=== PATIENT | female | born 1935 | race Caucasian/White ===

== ENCOUNTER 2017-10-01 09:03 | Outpatient (CLI) | payer MEDICARE, OTHER ==
--- NOTE | 2017-10-01 11:33 | CT ---
RIGHT FEMUR CT SCAN WITHOUT IV CONTRAST: HISTORY: Right lower thigh pain with history of an abnormal femur x-ray, which is not available for comparison . FINDINGS: The examination is performed from the proximal mid diaphysis down to the proximal tibia. There is no evidence of femoral fracture. 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 IMPRESSION: 1. No evidence for acute fracture or dislocation. 2. Significant arthrosis changes of the visualized knee joint, including large subchondral cystic ch anges involving the lateral compartment. 3. Small amount of knee joint fluid. 4. Arteriovascular calcifications. 5. No evidence of subcutaneous or soft tissue mass or abnormal fluid collection. POS: [facility]
== END 2017-10-01 09:04 | disposition home or self-care (01) ==
LOC: CT 09:03
PROVIDERS: ATTEND Specialist
DX: S72.341A Displaced spiral fracture of shaft of right femur, initial encounter for closed fracture (principal); M17.11 Unilateral primary osteoarthritis, right knee; I70.201 Unspecified atherosclerosis of native arteries of extremities, right leg

== ENCOUNTER 2017-10-30 00:48 | Emergency (ER) | payer MEDICARE, OTHER ==
[2017-10-30] MEDS ORDERED: Acetaminophen 500 MG TAB ONE (02:04)
--- NOTE | 2017-10-30 07:46 | CT ---
PRELIMINARY REPORT/[facility]/EMERGENCY AFTER HOURS PROCEDURE: EXAM: CT Head Without Intravenous Contrast CLINICAL HISTORY: 82 years old, female; Injury or trauma; Fall; Initial encounter; Abrasion; Not specified; Patient HX: Fall, from height less than 3 feet. TECHNIQUE: Axial computed tomography images of the head/brain without intravenous contrast. COMPARISON: No relevant prior studies available. FINDINGS: Brain: Mild volume loss No hemorrhage. Mild white matter disease. Chronic right basal ganglia and lef t internal capsular lacunar infarctions No edema. Ventricles: Unremarkable. No ventriculomegaly. Bones/joints: Unremarkable. No acute fracture. Soft tissues: Unremarkable. Sinuses: Polypoid tissue in the right maxillary sinus No acute sinusitis. Mastoid air cells: Unremarkable as visualized. No mastoid effusion. IMPRESSION: No intracranial hemorrhage.Please see discussion above. Thank you for allowing us to participate in the care of your patient. Dictated and Authenticated by: Craig Tran MD 10/30/2017 1:56 AM Central Time ([place] & [place]) FINAL INTERPRETATION HEAD CT WITHOUT CONTRAST: 10/30/2017 HISTORY: Injury. Fall. Pain. COMPARISON: None. FINDINGS: I agree with the preliminary [facility] report dictated by Dr. Craig Tran. There is polypoid mucosal thickening within the alveolar recess of the maxillary sinus on the left. There is atherosclerotic calcification of the cavernous carotid arteries. There are scattered areas of hypodensity in the periventricular white matter, evidence of small vesse l disease. There is atherosclerotic calcification of the cavernous carotid arteries and distal verte bral arteries. IMPRESSION: Stable head CT. No acute findings. POS: [facility]
--- NOTE | 2017-10-30 07:55 | CT ---
PRELIMINARY REPORT/[facility]/EMERGENCY AFTER HOURS PROCEDURE: EXAM: CT Cervical Spine Without Intravenous Contrast CLINICAL HISTORY: 82 years old, female; Injury or trauma; Fall; Initial encounter; Blunt trauma; Injury date: 10/30/2017 ; Injury details: Er2; Previous on pacs; Fall, from height less than 3 feet. TECHNIQUE: Axial computed tomography images of the cervical spine without intravenous contrast. All CT scans at this facility use one or more dose reduction techniques, viz.: automated exposure control; ma/kV adju stment per patient size (including targeted exams where dose is matched to indication; i.e. head); or iterative reconstruction technique. COMPARISON: No relevant prior studies available. FINDINGS: Vertebrae: Loss of vertebral body height, presumed degenerative No acute fracture. Discs/spinal canal/neural foramina: No acute findings. No significant spinal canal stenosis. Soft tissues: Unremarkable. Lung apices: Unremarkable as visualized. IMPRESSION: No definite acute cervical fracture Thank you for allowing us to participate in the care of your patient. Dictated and Authenticated by: Craig Tran MD 10/30/2017 1:56 AM Central Time ([place] & [place]) FINAL INTERPRETATION CERVICAL SPINE CT WITHOUT CONTRAST: 10/30/2017 HISTORY: Fall. Trauma. Pain. COMPARISON: 04/15/2017 FINDINGS: I agree with the preliminary [facility] report, dictated by Dr. Craig Tran. The C1 ring is intact. The visualized lung apices are unremarkable. The distal vertebral arteries demonstrate atherosclerotic calcification. The occipital condyles, den s, and C1-2 articulation demonstrate no acute findings. No displaced fracture or evidence of dislocation. Sagittal reformatted imaging demonstrates an intact craniocervical junction and cervicothoracic junct ion. There is degenerative present at the atlantoaxial interspace. Cervical vertebral body height a nd alignment appear normal. No fracture/dislocation. IMPRESSION: No acute osseous abnormality. POS: [facility]
--- NOTE | 2017-10-30 07:59 | RAD ---
TWO VIEWS RIGHT FEMUR: History: Fall. Pain. Comparison: None. FINDINGS: No fracture. No cortical irregularity or periosteal reaction. There is mild bone demineralization. IMPRESSION: No fracture. POS: [facility]
--- NOTE | 2017-10-30 08:04 | RAD ---
FRONTAL VIEW CHEST: CLINICAL HISTORY: Fall with pain. FINDINGS: There is linear density with slight nodularity at the lateral and inferior right hemithorax. There i s elevation of the right hemidiaphragm. There is interstitial prominence of each joint space. There is borderline size of the cardiac silhouette. Vascular calcification and slight vascular prominence is seen. Scattered osseous degenerative change is present. IMPRESSION: Linear and somewhat nodular configuration to a small area of opacity at the inferolateral right hemit horax. Comparing to the 07/01/2014 exam, this is a new finding. Recommend followup on a short term basis with a two view chest to confirm resolution. Otherwise, no acute process visualized. POS: [facility]
--- NOTE | 2017-10-30 08:04 | RAD ---
FOUR VIEWS RIGHT KNEE: Date: 10-30-17 Comparison: None. History: Fall. FINDINGS: Moderate medial compartment narrowing is noted with subchondral sclerosis and osteophyte formation. T here is mild medial compartment narrowing. There is no displaced fracture or evidence of dislocation seen. There is enthesophyte formation at th e insertion of the quadriceps tendon. Patellofemoral joint space narrowing and posterior patellar ost eophyte formation noted. No displaced fracture or dislocation. IMPRESSION: Multicompartment degenerative changes but no acute osseous abnormality. POS: [facility]
== END 2017-10-30 03:18 ==
LOC: ERS 00:48
DX: S80.01XA Contusion of right knee, initial encounter (principal); S70.11XA Contusion of right thigh, initial encounter; I10 Essential (primary) hypertension; E11.39 Type 2 diabetes mellitus with other diabetic ophthalmic complication; H40.9 Unspecified glaucoma; F41.9 Anxiety disorder, unspecified; F03.90 Unspecified dementia, unspecified severity, without behavioral disturbance, psychotic disturbance, mood disturbance, and anxiety; F32.9 Major depressive disorder, single episode, unspecified; Z87.891 Personal history of nicotine dependence; Z87.442 Personal history of urinary calculi; W17.89XA Other fall from one level to another, initial encounter
CPT/HCPCS: 70450; 71045; 72125; 93005

== ENCOUNTER 2018-09-25 22:00 | Emergency (ER) | payer MEDICARE, OTHER ==
--- NOTE | 2018-09-25 22:59 | RAD ---
RIGHT KNEE 4 VIEWS: Date: 09/25/18 HISTORY: Patient fell, now with knee pain. FINDINGS: The bones are demineralized. There are moderate arthritic changes of the knee with tricompartment deg enerative change. No joint effusion or fracture. IMPRESSION: Arthritic changes of the knee. No acute findings. POS: [facility]
--- NOTE | 2018-09-25 23:00 | RAD ---
RIGHT HIP 2 VIEWS: Date: 09/25/18 HISTORY: Fall with hip pain. FINDINGS: The bones are demineralized. There are mild arthritic changes of the hip. There are no signs of fract ure. IMPRESSION: No evidence of fracture. POS: [facility]
--- NOTE | 2018-09-25 23:20 | CT ---
CT OF BRAIN PERFORMED WITHOUT CONTRAST ENHANCEMENT: Date; 09/25/18 HISTORY: Fall. Hit back of head. COMPARISON: 10/30/17. FINDINGS: There is generalized ventricular and sulcal prominence. There are no signs of intracerebral hemorrhag e or extra-axial fluid collections. The mastoid air cells and visualized sinuses are clear. IMPRESSION: Atrophy and chronic white matter change. No acute intracranial abnormalities. POS: [facility]
--- NOTE | 2018-09-25 23:21 | CT ---
CT OF CERVICAL SPINE PERFORMED WITHOUT CONTRAST ENHANCEMENT: Date: 09/25/18 HISTORY: Fall with neck pain. FINDINGS: Vertebral bodies are normal in height. The bones appear demineralized. Degenerative disc narrowing is seen at C6-7. There are moderate degenerative facet changes noted. The facets do appear to be in nor mal alignment. No significant canal stenosis. There is no CT evidence for fractures. Lung apices are clear. IMPRESSION: No CT evidence of fracture of the cervical spine. POS: [facility]
== END 2018-09-25 23:55 ==
LOC: ERS 22:00
DX: S09.90XA Unspecified injury of head, initial encounter (principal); M25.561 Pain in right knee; F41.9 Anxiety disorder, unspecified; F03.90 Unspecified dementia, unspecified severity, without behavioral disturbance, psychotic disturbance, mood disturbance, and anxiety; Z87.891 Personal history of nicotine dependence; I10 Essential (primary) hypertension; W01.10XA Fall on same level from slipping, tripping and stumbling with subsequent striking against unspecified object, initial encounter
CPT/HCPCS: 70450; 72125

== ENCOUNTER 2018-11-11 22:24 | Observation (INO) | payer MEDICARE, OTHER ==
[2018-11-11] MEDS ORDERED: Acetaminophen 650 MG Suppository ONE (22:41)
[2018-11-11 23:06] LABS: Bilirubin Negative (Negative); Blood, Urine Small (Negative); Clarity CLOUDY (Clear); Glucose, Urine (Dipstick) Negative (Negative); Leukocyte Moderate (Negative); Nitrite Positive (Negative); Protein, Urine (Dipstick) 30 mg/dL (Neg-Trace); Specific Gravity, Urine 1.019 (1.002-1.036)
[2018-11-11 23:12] LABS: Bacteria/HPF 1+ HPF (None Seen); Pathc Cast-AUWi Flag 1.76 (0-2.49); Squamous Epithelial None Seen HPF (0-3)
--- NOTE | 2018-11-11 23:15 | RAD ---
FEXAM: Portable chest PROVIDED CLINICAL HISTORY: Altered mental status COMPARISON: 04/06/2016 FINDINGS: Cardiac and mediastinal silhouette is within normal limits. No focal consolidation, pleural fluid or pneumothorax evident. IMPRESSION: No evidence for an acute cardiopulmonary process.
[2018-11-11 23:17] LABS: #Eosinphils 0.1 thou/uL (0.0-0.7); #Lymphocytes 1.1 thou/uL (1.20-3.40); #Monocytes 1.3 thou/uL (0.11-0.59); #Neutrophils 7.3 thou/uL (1.40-6.50); %Basophils 0.4 % (0.0-1.0); %Eosinophils 0.6 % (0.0-10.0); %Lymphocytes 11.5 % (21.0-51.0); %Monocytes 13.3 % (0.0-10.0); %Neutrophils 74.3 % (42.0-75.0); Hemoglobin 9.8 g/dL (12.0-16.0); Mean Corpuscular HGB CONC 32.7 g/dL (32.0-36.0); Mean Corpuscular Hemoglobin 30.7 pg (27.0-31.0); Mean Corpuscular Volume 93.8 fL (78.0-98.0); Mean Platelet Volume 8.3 fL (7.4-10.4); Platelet Count 259 thou/uL (130-400); RBC Distribution Width 12.8 % (11.5-14.5); Red Blood Cell (RBC) Count 3.18 mill/uL (4.20-5.40); White Blood Cell (WBC) Count 9.8 thou/uL (4.8-10.8)
[2018-11-11 23:32] LABS: Hyaline Casts/LPF NONE SEEN LPF (0-3 Hyaline)
--- NOTE | 2018-11-11 23:34 | CT ---
FExam: CT brain PROVIDED CLINICAL HISTORY: Altered mental status COMPARISON: 09/25/2018 FINDINGS: The ventricular system is normal in size and morphology. No evidence for intracranial hemorrhage or mass effect. The extracranial soft tissues and osseous structures demonstrate an unremarkable CT appe arance. Chronic microvascular ischemic changes are redemonstrated. IMPRESSION: No evidence for intracranial hemorrhage or mass effect.
[2018-11-11 23:40] LABS: ALT (SGPT) 19 U/L (8-55); AST (SGOT) 17 U/L (5-34); Albumin 3.1 g/dL (3.4-4.8); Alkaline Phosphatase 80 U/L (40-150); Anion Gap 14 mmol/L (10-20); BUN (Urea Nitrogen) 20 mg/dL (9.8-20.1); Bilirubin, Total 0.6 mg/dL (0.2-1.2); Calc. Creatinine Clearance 0 mL/min (70-130); Calcium 8.9 mg/dL (7.8-10.44); Carbon Dioxide 24 mmol/L (23-31); Chloride 106 mmol/L (98-107); Estimated GFR-MDRD 63; Glucose 118 mg/dL (83-110); Potassium 3.7 mmol/L (3.5-5.1); Protein, Total 6.1 g/dL (6.0-8.3); Sodium 140 mmol/L (136-145)
[2018-11-11] MEDS ORDERED: Ondansetron PF 4 MG/2 ML Vial IVP PRN (23:50)
[2018-11-11] MEDS ORDERED: Zolpidem Tartrate 5 MG TAB PO PRN (23:50)
[2018-11-11] MEDS ORDERED: Acetaminophen 325 MG TAB PO PRN (23:50)
[2018-11-11] MEDS ORDERED: Senokot S 8.6-50 MG TAB PO PRN (23:50)
[2018-11-12] MEDS ORDERED: ALPRAZolam 0.25 MG TAB PO PRN (00:02)
[2018-11-12] MEDS ORDERED: cefTRIAXone\\ROCEPHIN 1 GM VIAL ONE (00:04)
--- NOTE | 2018-11-12 00:09 | PDOC.EVN ---
Event Note - Event Note Event Note: H&P [id number]
[2018-11-12] MEDS ORDERED: Melatonin 3 MG TAB PO PRN (00:19)
--- NOTE | 2018-11-12 00:33 | HP ---
CHIEF COMPLAINT: Change in mental status. HISTORY OF PRESENT ILLNESS: This is an 83-year-old female, who lives at [facility] with a diagnosis of dementia. The patient's son is at bedside, who provides a history. Apparently, the patient over the last 2 to 3 days has been having worsening cognitive function. This morning, the patient states that she failed to recognize him and was having some speech as well as significant weakness and change in status. The patient was brought to the hospital, found to have a raging UTI. The patient did not have any oral antibiotics tried at the outpatient facility. Per ER, I was told that the patient would not be accepted back to [facility] unless she tried IV antibiotics and was admitted to the hospital, thus admission was recommended by the nurse practitioner. ALLERGIES: TO AMOXICILLIN, VANCOMYCIN, AND ADHESIVE TAPE. PAST MEDICAL HISTORY: Positive for dementia, hypertension, back pain, GERD, as well as hyperlipidemia. SOCIAL HISTORY: Nondrinker and nonsmoker. FAMILY HISTORY: Positive for hypertension and hyperlipidemia. REVIEW OF SYSTEMS: Not possible given changes in mental status. PHYSICAL EXAMINATION: VITAL SIGNS: Blood pressure 121/88, heart rate of 88, temperature of 98, and O2 saturations 98% on room air. GENERAL: The patient is sleeping in bed. No acute discomfort. HEENT: Pupils are equal, round, and reactive to light and accommodation. NECK: Supple, mobile, nontender. Thyroid is appreciated. CARDIOVASCULAR: Regular rate and rhythm. S1 and S2. Faint murmur systolic appreciated. PULMONARY: Clear to auscultation bilaterally. No respiratory distress. ABDOMINAL: Positive bowel sounds. Soft, nontender, and nondistended. EXTREMITIES: Trace pitting edema. 2+ peripheral pulses bilaterally. NEUROLOGIC: The patient withdraws to pain, babbling, not making any sense. LABORATORY DATA AND DIAGNOSTIC STUDIES: Labs reviewed. CBC, BMP, urinalysis reviewed. CT brain reviewed as well, which was negative for any acute intracranial processes. ASSESSMENT: 1. Altered mental status, likely secondary to urinary tract infection. 2. Urinary tract infection. 3. Anemia. 4. Hypertension. 5. History of dementia. PLAN: At this point in time, we will admit the patient to Internal Medicine Team and Observation services with IV Rocephin to be started. If the patient has improvement, can likely be discharged in a.m. with Keflex or Levaquin to complete 7-day course. The patient is a DNR per her son in case and plan discussed with the patient's son at length. He understood and agreed with this plan. Job ID: [id number]
[2018-11-12] MEDS: Sodium Chloride 0.9% 1,000 ML IV SCH ×2 (00:50→15:52)
[2018-11-12 01:15] VITALS: BMI 23.1
[2018-11-12] MEDS: cefTRIAXone\\ROCEPHIN 1 GM in Sodium Chloride 0.9% 100 ML IVPB SCH (01:34)
[2018-11-12 04:44] LABS: #Eosinphils 0.1 thou/uL (0.0-0.7); #Lymphocytes 1.6 thou/uL (1.20-3.40); #Monocytes 1.2 thou/uL (0.11-0.59); #Neutrophils 6.2 thou/uL (1.40-6.50); %Basophils 0.4 % (0.0-1.0); %Eosinophils 0.9 % (0.0-10.0); %Lymphocytes 17.1 % (21.0-51.0); %Monocytes 13.3 % (0.0-10.0); %Neutrophils 68.2 % (42.0-75.0); Hemoglobin 9.7 g/dL (12.0-16.0); Mean Corpuscular HGB CONC 32.9 g/dL (32.0-36.0); Mean Corpuscular Hemoglobin 31.2 pg (27.0-31.0); Mean Corpuscular Volume 94.8 fL (78.0-98.0); Platelet Count 245 thou/uL (130-400); RBC Distribution Width 12.9 % (11.5-14.5); Red Blood Cell (RBC) Count 3.11 mill/uL (4.20-5.40); White Blood Cell (WBC) Count 9.1 thou/uL (4.8-10.8)
[2018-11-12 05:07] LABS: Anion Gap 13 mmol/L (10-20); BUN (Urea Nitrogen) 20 mg/dL (9.8-20.1); Calc. Creatinine Clearance 54 mL/min (70-130); Calcium 8.6 mg/dL (7.8-10.44); Carbon Dioxide 22 mmol/L (23-31); Chloride 108 mmol/L (98-107); Estimated GFR-MDRD 68; Glucose 103 mg/dL (83-110); Potassium 3.7 mmol/L (3.5-5.1); Sodium 139 mmol/L (136-145)
[2018-11-12] MEDS: glyBURIDE 5 MG TAB PO SCH (08:42)
[2018-11-12] MEDS ORDERED: Prevnar 13-Val Conj/PF 0.5 ML SYRINGE IM ONE (09:00)
[2018-11-12] MEDS ORDERED: Mirtazapine 30 MG TAB PO SCH (09:00)
[2018-11-12] MEDS: Calcium Polycarbophil 625 MG TAB PO SCH (09:31)
[2018-11-12] MEDS ORDERED: Dextrose 50% Abboject 50 ML SYRINGE ONE (11:15)
[2018-11-12] MEDS: Dextrose 5 % And 0.9 % NaCl 1,000 ML IV SCH (15:45)
[2018-11-12] MEDS ORDERED: Dextrose 5% in Water 1,000 ML IV PRN (15:56)
[2018-11-12] MEDS ORDERED: HumaLOG 300 UNITS/3 ML VIAL SC PRN (15:56)
[2018-11-12] MEDS ORDERED: Dextrose 50% Abboject 50 ML SYRINGE SLOW IVP PRN (15:56)
[2018-11-12] MEDS ORDERED: Atorvastatin Calcium 10 MG TAB PO SCH (21:00)
--- NOTE | 2018-11-12 22:22 | PDOC.PN ---
- Subjective Encounter Start Date: 11/12/18 Encounter Start Time: 12:30 Subjective: pt up in bed oriented x1, complains of nausea - Objective Resuscitation Status - Order Detail: 11/12/18 00:08 Resuscitation Status Routine Resuscitation Status: DNAR: NO Resuscitation Discussed with: son Vital Signs & Weight: Vital Signs (12 hours) Temp Pulse Resp BP Pulse Ox 11/12/18 19:21 98.3 F 65 18 112/53 L 93 L 11/12/18 16:00 99.1 F 81 16 154/63 H 96 11/12/18 12:00 97.5 F L 82 16 129/62 95 Weight Weight 143 lb 4.807 oz I&O: 11/11/18 11/12/18 11/13/18 06:59 06:59 06:59 Intake Total 210 2641 Balance 210 2641 Result Diagrams: 11/12/18 04:29 11/12/18 04:29 Additional Labs: Accuchecks 11/12/18 11/12/18 11/12/18 19:43 18:26 17:49 POC Glucose 179 H 226 H 69 L 11/12/18 11/12/18 11/12/18 17:09 16:18 11:49 POC Glucose 65 L 48 L* 103 11/12/18 11:15 POC Glucose 58 L* Phys Exam - Physical Examination Neck: no nodes, no JVD, supple, full ROM Respiratory: no wheezing, no rales, no rhonchi, wheezing present, clear to auscultation bilateral Cardiovascular: RRR, no significant murmur, no rub, gallop, irregular Gastrointestinal: soft, non-tender, no distention, positive bowel sounds Musculoskeletal: no edema, pulses present, edema present Dx/Plan (1) Acute metabolic encephalopathy Code(s): G93.41 - METABOLIC ENCEPHALOPATHY Status: Acute (2) UTI (urinary tract infection) Status: Acute (3) Chronic nausea Code(s): R11.0 - NAUSEA Status: Chronic (4) Hypoglycemia Code(s): E16.2 - HYPOGLYCEMIA, UNSPECIFIED Status: Acute - Plan will continue abx for now -: pt encouraged to eat. if she continues to have a low appetite she may need -: a appetite stimulant. -: will order PT/OT * . Review of Systems - Review of Systems Respiratory: negative: Cough, Dry, Shortness of Breath, Hemoptysis, SOB with Excertion, Pleuritic Pain, Sputum, Wheezing Cardiovascular: negative: chest pain, palpitations, orthopnea, paroxysmal nocturnal dyspnea, edema, light headedness, other Gastrointestinal: Nausea Genitourinary: negative: Dysuria, Frequency, Incontinence, Hematuria, Retention , Other - Medications/Allergies Allergies/Adverse Reactions: Allergies Allergy/AdvReac Type Severity Reaction Status Date / Time adhesive Allergy Verified 03/16/14 16:23 amoxicillin trihydrate Allergy Verified 03/16/14 15:47 [From Amoxil] lincomycin HCl Allergy Verified 03/16/14 16:23 [From Lincocin] Medications: Current Medications Acetaminophen (Tylenol) 650 mg PO Q4H PRN PRN Reason: Headache/Fever/Mild Pain (1-3) Alprazolam (Xanax) 0.5 mg PO TIDPRN PRN PRN Reason: anxiety Atorvastatin Calcium (Lipitor) 10 mg PO HS [facility] Last Admin: 11/12/18 20:19 Dose: 10 mg Calcium Polycarbophil (Fibercon) 625 mg PO DAILY [facility] Last Admin: 11/12/18 09:31 Dose: 625 mg Dextrose/Water (Dextrose 50%) 25 gm SLOW IVP PRN PRN PRN Reason: Hypoglycemia Last Admin: 11/12/18 18:02 Dose: 25 gm Glucagon (Glucagon) 1 mg IM PRN PRN PRN Reason: Hypoglycemia Glyburide (Diabeta) 5 mg PO DAILY [facility] Last Admin: 11/12/18 08:42 Dose: 5 mg Ceftriaxone Sodium 1 gm/ (Sodium Chloride) 100 mls @ 200 mls/hr IVPB Q24HR [facility] Last Admin: 11/12/18 01:34 Dose: Not Given Dextrose/Sodium Chloride (D5 0.9% Ns) 1,000 mls @ 50 mls/hr IV .Q20H [facility] Last Admin: 11/12/18 15:45 Dose: 1,000 mls Dextrose/Water (D5w) 1,000 mls @ 0 mls/hr IV .Q0M PRN PRN Reason: Hypoglycemia Insulin Human Lispro (Humalog) 0 units SC .MILD SLIDING SCALE PRN PRN Reason: Mild Correctional Scale Melatonin (Melatonin) 6 mg PO HS PRN PRN Reason: Insomnia Mirtazapine (Remeron) 15 mg PO DAILY [facility] Ondansetron HCl (Zofran) 4 mg IVP Q6H PRN PRN Reason: Nausea/Vomiting Last Admin: 11/12/18 09:34 Dose: 4 mg Pantoprazole Sodium (Protonix) 40 mg PO DAILY [facility] Last Admin: 11/12/18 08:42 Dose: 40 mg Senna/Docusate Sodium (Senokot S) 2 tab PO BID PRN PRN Reason: Constipation Zolpidem Tartrate (Ambien) 5 mg PO HSPRN PRN PRN Reason: Insomnia
[2018-11-13] MEDS: cefTRIAXone\\ROCEPHIN 1 GM in Sodium Chloride 0.9% 100 ML IVPB SCH (03:21)
[2018-11-13] MEDS ORDERED: Mirtazapine 15 MG TAB PO SCH (09:00)
[2018-11-13] MEDS ORDERED: Saccharomyces boulardii 250 MG CAP PO SCH (09:00)
[2018-11-13] MEDS: Calcium Polycarbophil 625 MG TAB PO SCH (09:35)
[2018-11-13] MEDS: glyBURIDE 5 MG TAB PO SCH (09:35)
--- NOTE | 2018-11-13 11:29 | PDOC.EVN ---
Event Note - Event Note Event Note: DC SUMMARY [id number]
[2018-11-13] MEDS: Dextrose 5 % And 0.9 % NaCl 1,000 ML IV SCH (11:55)
[2018-11-13 12:44] VITALS: BP 151/70; TEMP 98.6
--- NOTE | 2018-11-14 05:24 | DIS ---
DATE OF ADMISSION: 11/11/2018 DATE OF DISCHARGE: 11/13/2018 ADMITTING DIAGNOSES: Urinary tract infection, sepsis, changes in mental status from baseline, history of dementia, hypertension. DISCHARGE DIAGNOSES: Urinary tract infection, stable. Anemia, stable. Hypertension, stable. The patient back to baseline mental status. HOSPITAL COURSE: This is an 83-year-old female who was found to have baseline changes in mental status at her skilled nursing. She lives apparently at [facility], brought to the ER, found to have urinary tract infection with sepsis. Started on IV Rocephin. The patient was maintained on this for 48 hours, had significant improvement in her physical condition. No fevers, chills, nausea, vomiting, diarrhea, chest pain, or shortness of breath upon time of discharge. Hemoglobin was stable. Renal function stable. The patient had significantly improved, was given Keflex to be taken twice a day at point in time of discharge to the skilled nursing. The patient otherwise advised to follow up with PCP. DIET: Low-fat, low-calorie, high-fiber diet. CONDITION: Stable. PROGNOSIS: Guarded. ACTIVITY: As tolerated with assistance as needed. DISPOSITION: Back to [facility]. FOLLOWUP: Follow up with PCP in one week. No family at bedside. Job ID: [id number]
== END 2018-11-13 17:09 | disposition home or self-care (01) ==
LOC: ERS 22:24 → ONC 23:45
PROVIDERS: ADMIT Internal Medicine; ATTEND Internal Medicine
DX: N39.0 Urinary tract infection, site not specified (principal); D64.9 Anemia, unspecified; I10 Essential (primary) hypertension; F03.90 Unspecified dementia, unspecified severity, without behavioral disturbance, psychotic disturbance, mood disturbance, and anxiety; K21.9 Gastro-esophageal reflux disease without esophagitis; E78.5 Hyperlipidemia, unspecified; G93.41 Metabolic encephalopathy; Z88.1 Allergy status to other antibiotic agents; Z91.09 Other allergy status, other than to drugs and biological substances; Z79.84 Long term (current) use of oral hypoglycemic drugs; Z79.2 Long term (current) use of antibiotics; Z79.899 Other long term (current) drug therapy
CPT/HCPCS: 51701; 70450; 71045; 80048; 80053; 82962 ×2; 83605; 84484; 85025 ×2; 87040; 87324; 87449; 87804 ×2; 93005; 96361 ×3; 96365; 96375; 97139; 99285; G0378 ×2; 36415; 36416; 81003; 81015; 96374; 96376; A4353; J0696; J2405; J7050

== ENCOUNTER 2018-11-28 20:03 | Inpatient (IN) | payer MEDICARE, OTHER ==
[2018-11-28 20:40] LABS: Bilirubin Negative (Negative); Blood, Urine Small (Negative); Clarity CLOUDY (Clear); Glucose, Urine (Dipstick) Negative (Negative); Leukocyte Large (Negative); Nitrite Negative (Negative); Protein, Urine (Dipstick) 100 mg/dL (Neg-Trace); Specific Gravity, Urine 1.014 (1.002-1.036); Urobilinogen 0.2 mg/dL (0.2-1.0)
[2018-11-28 20:42] LABS: Bacteria/HPF 4+ HPF (None Seen); Pathc Cast-AUWi Flag 1.22 (0-2.49); RBC/HPF 0-3 HPF (0-3); Squamous Epithelial None Seen HPF (0-3)
[2018-11-28 20:48] LABS: Hemoglobin 11.2 g/dL (12.0-16.0); Mean Corpuscular HGB CONC 32.5 g/dL (32.0-36.0); Mean Corpuscular Hemoglobin 30.3 pg (27.0-31.0); Mean Corpuscular Volume 93.3 fL (78.0-98.0); Mean Platelet Volume 8.3 fL (7.4-10.4); Platelet Count 356 thou/uL (130-400); RBC Distribution Width 13.6 % (11.5-14.5)
--- NOTE | 2018-11-28 20:50 | RAD ---
EXAM: CHEST ONE VIEW HISTORY: Decreasing mental status. Altered mental status. Recently treated for UTI. COMPARISON: 11/11/2018 FINDINGS: The cardiac silhouette and pulmonary vasculature is within normal limits. There is mild atelectasis a t the right lung base. The lungs otherwise appear clear. There is osteopenia. Vascular calcifications are seen in the thoracic aorta. Surgical clips are again seen overlying the right uppe r quadrant. IMPRESSION: No acute cardiopulmonary process.
[2018-11-28 20:56] LABS: Hyaline Casts/LPF 4-6 HYALINE CAST LPF (0-3 Hyaline)
[2018-11-28 20:57] LABS: Band 14 % (5-11); Lymphocytes 10 % (21-51); MDiff Complete? YES; Monocytes 9 % (0-10); Neutrophil 66 % (42-75); Platelet Morphology Comment Appears Adequate
[2018-11-28 21:02] LABS: ALT (SGPT) 23 U/L (8-55); AST (SGOT) 17 U/L (5-34); Albumin 3.4 g/dL (3.4-4.8); Alkaline Phosphatase 79 U/L (40-150); Anion Gap 14 mmol/L (10-20); BUN (Urea Nitrogen) 18 mg/dL (9.8-20.1); Bilirubin, Total 0.5 mg/dL (0.2-1.2); Calc. Creatinine Clearance 0 mL/min (70-130); Calcium 8.8 mg/dL (7.8-10.44); Carbon Dioxide 25 mmol/L (23-31); Chloride 103 mmol/L (98-107); Estimated GFR-MDRD 61; Globulin 2.8 g/dL (2.4-3.5); Glucose 119 mg/dL (83-110); Lipase 78 U/L (8-78); Potassium 3.4 mmol/L (3.5-5.1); Protein, Total 6.2 g/dL (6.0-8.3); Sodium 139 mmol/L (136-145)
--- NOTE | 2018-11-28 21:20 | CT ---
CT BRAIN 11/28/18 HISTORY: Altered mental status. Noncontrast enhanced CT images of the brain is obtained from the base of the skull to the vertex. Br ain and bone windows obtained. Images demonstrate small areas of lacunar infarction in the left basal ganglia. This appears to have been present on the previous exam from 11/11/18. No evidence of acute intracranial masses or lesions seen. No other significant interval changes or ab normality seen. IMPRESSION: No evidence of acute intracranial pathology. POS: [facility]
[2018-11-28] MEDS ORDERED: cefTRIAXone\\ROCEPHIN 2 GM VIAL ONE (22:16)
[2018-11-28] MEDS ORDERED: SODIUM CHLORIDE 0.9% IVPB SCH (22:45)
[2018-11-28] MEDS ORDERED: GENTAMICIN SULFATE IVPB SCH (22:45)
--- NOTE | 2018-11-28 23:23 | CT ---
NONCONTRAST ENHANCED CT IMAGES ABDOMEN AND PELVIS: 11/28/18 HISTORY: Urinary tract infections, abdominal pain. Noncontrast enhanced CT images of the abdomen and pelvis is obtained. A tiny right sided pleural effusion seen. Some minimal areas of right lower lobe atelectasis seen. No evidence of free intraperitoneal air is seen. The liver and spleen are unremarkable. The gallbladder has been surgically removed. The pancreas is u nremarkable. Adrenal glands unremarkable. The left kidney is unremarkable. There is an 8.8 mm renal calculus at the right ureteropelvic junction resulting in moderate right walt ed hydronephrosis. I suspect that this calculus is too large to pass the right ureter. There is surro unding right pararenal fat stranding. The urinary bladder is unremarkable. No dilated loops of small bowel seen. Extensive descending and sigmoid colonic diverticulosis is pres ent. IMPRESSION: Right sided hydronephrosis with obstructing proximal right ureteral renal calculus. POS: [facility]
[2018-11-29] MEDS ORDERED: Magnesium Sulfate 4 GM in Sodium Chloride 0.9% 250 ML 250 ML IVPB SCH (00:30)
[2018-11-29] MEDS ORDERED: Ondansetron PF 4 MG/2 ML Vial IVP PRN (00:36)
[2018-11-29] MEDS ORDERED: Acetaminophen 325 MG TAB PO PRN (00:36)
[2018-11-29] MEDS ORDERED: Ondansetron ODT 4 MG TAB SL PRN (00:36)
[2018-11-29 04:00] LABS: Lactic Acid 2.4 mmol/L (0.5-2.2)
[2018-11-29] MEDS: Sodium Chloride 0.9% 1,000 ML IV SCH ×2 (04:11→11:56)
[2018-11-29 05:05] VITALS: BMI 21.6
[2018-11-29] MEDS ORDERED: Guaifenesin DM 100-10/5 ML UDCUP PO PRN (07:52)
[2018-11-29] MEDS ORDERED: Acetaminophen 650 MG Suppository PR PRN (07:52)
[2018-11-29] MEDS ORDERED: Bisacodyl 10 MG SUPP PR PRN (07:52)
[2018-11-29] MEDS ORDERED: HYDROcodone/Acetaminophen 5/325 mg Tablet PO PRN (07:52)
[2018-11-29] MEDS ORDERED: Senokot S 8.6-50 MG TAB PO PRN (07:52)
[2018-11-29] MEDS ORDERED: Docusate 100 MG CAP PO PRN (08:05)
[2018-11-29] MEDS ORDERED: BENZOCAINE TOP PRN (08:05)
[2018-11-29] MEDS ORDERED: Dextrose 5% in Water 1,000 ML IV PRN (08:07)
[2018-11-29] MEDS ORDERED: HumaLOG 300 UNITS/3 ML VIAL SC PRN (08:07)
[2018-11-29] MEDS ORDERED: Dextrose 50% Abboject 50 ML SYRINGE SLOW IVP PRN (08:07)
[2018-11-29] MEDS ORDERED: Potassium Chloride 20 MEQ TAB PO ONE (08:14)
[2018-11-29] MEDS ORDERED: Benzocaine (Dental) 20% 10 gm Tube TOP PRN (08:18)
[2018-11-29 08:58] LABS: Folate (Folic Acid) 8.7 ng/mL (7.0-31.4)
[2018-11-29] MEDS ORDERED: Non-Formulary Item 1 EACH (Sertraline Hcl [Sertraline Hcl] 50 MG) PO SCH (09:00)
[2018-11-29] MEDS: Enoxaparin Sodium 30 MG/0.3 ML SYRINGE SC SCH (13:23)
[2018-11-29] MEDS: Donepezil HCl 5 MG TAB PO SCH (13:23)
[2018-11-29] MEDS: Calcium Polycarbophil 625 MG TAB PO SCH (13:23)
[2018-11-29] MEDS: Mirtazapine 30 MG TAB PO SCH (13:24)
[2018-11-29] MEDS: Piperacillin/Tazobactam 3.375 GM in Sodium Chloride 0.9% 100 ML IVPB SCH ×2 (13:52→18:30)
--- NOTE | 2018-11-29 14:25 | CON ---
DATE OF CONSULTATION: 11/29/2018 REFERRING: Hospitalist. HISTORY OF PRESENT ILLNESS: Ms. Arriaga is an 83-year-old female with history of severe dementia, Alzheimer's, a resident of [facility] , who presents with UTI, recently discharged from the hospital, with Keflex. She is admitted through the emergency room last night due to mental status changes for the last 2-3 days. She was recently discharged from the hospital for UTI. She presented to the emergency room to rule out worsening infection complication. Her vital signs are stable in the emergency room, temperature of 98, blood pressure 124/60, however, [place] was [place] [address] with 14 bands. She is hemodynamically stable. She is known to have history of diabetes with prior A1c of 6.2. Renal function is stable. She also presented with elevated lactic acid of 3.8. Repeat this morning is 2.4. Her urine culture, which I reviewed myself when she was recently discharged demonstrates the culture is negative. However, she was treated for presumed UTI component. Remote history of E coli, pansensitive except to ampicillin in November 2013. H/o nonobstructing right renal calculi. Upon discussing with her son, he is unaware of her diagnosis of renal calculi, he denies history of kidney stone surgery. Currently, she is resting comfortably. She has received multiple antibiotics of gentamicin, vancomycin, and Rocephin. History is obtained per chart and son as she is unable to provide a subjective history due to severe dementia. PAST MEDICAL HISTORY: Includes: 1. Hypertension. 2. Chronic abdominal pain/irritable bowel syndrome. 3. Anxiety. 4. Depression. 5. Severe dementia. 6. Alzheimer. 7. History of narcotic-seeking behavior per Dr. Rojas's consult in 2010. 8. Extensive intraabdominal adhesions. 9. History of a colon carcinoid tumor status post removal in [address] Alvarado. 10. History of basal cell carcinoma. 11. History of kidney stone. 12. History of hearing loss. 13. History of glaucoma. 14. History of ulcerative colitis. PAST SURGICAL HISTORY: Colon resection, appendectomy, cholecystectomy, hysterectomy, and bilateral breast lumpectomies. PSYCHIATRIC HISTORY: Include anxiety, depression, and severe dementia. SOCIAL HISTORY: Lives in [facility]. Denies illicit drug use or smoking. FAMILY HISTORY: Noncontributory. ALLERGIES: PER ER, NO KNOWN DRUG ALLERGIES. SON RELATES ALLERGY TO AMOXICILLIN. CURRENT MEDICATIONS: Again, she has received vancomycin, gentamycin, and Rocephin in the ER. Currently on Zosyn, Zoloft, Senokot, Seroquel, Remeron, melatonin, insulin sliding scale, Robitussin, Lovenox 30 mg subcutaneous, Colace, Aricept, FiberCon, Dulcolax, hydrocodone 5/325, and Tylenol. PHYSICAL EXAMINATION: VITAL SIGNS: Stable at temperature 98, pulse 73, saturations 93%, and blood pressure 124/60. GENERAL: The patient appears to be resting comfortably. HEENT: Grossly unremarkable. HEART: Regular rate. LUNGS: Clear. ABDOMEN: Soft, nontender, nondistended. Midline laparotomy incision is noted. : Demonstrates severe atrophic vaginitis. Urethral mucosa prolapse. EXTREMITIES: No cyanosis, clubbing, or edema. She does complain of right knee pain due to arthritis. PERTINENT LABORATORY AND IMAGING DATA: On November 12, her white count was normal at 9.3 and on arrival yesterday 25,000 white count, hemoglobin 11, platelet 256, 14 bands. Prior INR back in 2013 is grossly unremarkable. Hemoglobin A1c 6.2 in 2016. Creatinine on arrival is 0.8. Lactic acid yesterday 3.8, decreased to 2.4 with antibiotics. Blood cultures negative thus far. C diff is negative. Urine culture from earlier in November/2018 is negative. November 2013, E coli pansensitive urine culture. Urinalysis on this current admission demonstrates 100 protein, large leukocytes, negative nitrites, greater than 50 wbc's, 0-3 rbc's, 4+ bacteria. Repeat urine culture is pending. CT of the abdomen and pelvis in comparison to 2016, which demonstrates a right nonobstructing 6-[address] scan on November 28, 2018, stone protocol. Left kidney is unremarkable. There is a 9-10 mm per my review right UPJ proximal ureteral stone with right hydronephrosis. There is perirenal fat stranding. Bladder is unremarkable. Extensive colonic diverticulosis. CT of the brain on this admission November 28 is grossly unremarkable. No acute process of chest x-ray. EKG on this admission demonstrates nonspecific ST-T wave abnormality, prolonged QT. IMPRESSION: Ms. Arriaga is an 83-year-old female with: 1. Past medical history of diabetes. 2. Severe dementia. 3. Hypertension. 4. History of colon resection. 5. History of ulcerative colitis. 6. History of kidney stone. 7. Recent admission due to urinary tract infection, however, culture negative, current admission due to leukocytosis. Urinalysis consistent with urinary tract infection, leukocytosis, elevated lactic acid. CT demonstrates a large proximal ureteral stone 9-10 mm with hydronephrosis. I discussed with son in lengthy detail regarding cysto and right stent placement. She will require an elective ureteroscopy and laser lithotripsy. As she presents with urinary tract infection component, concerning for sepsis, the patient's son desires me to proceed with the ureteral stent placement. She will undergo cystoscopy and right stent today. I do recommend cardiac evaluation in-house, as laser lithotripsy will be performed at a later date with general anesthesia. Given stone burden, it will be a longer period of anesthesia that she will require for laser lithotripsy of ureteral calculi. We will proceed today for cystoscopy, stent. Questions encouraged and answered to satisfaction. Continue Zosyn for now., Culture identification on this admission is pending. Job ID: [id number] MTDD
--- NOTE | 2018-11-29 14:39 | HP ---
PRIMARY CARE PHYSICIAN: Mika Gomez MD. CHIEF COMPLAINT: Confusion. HISTORY OF PRESENT ILLNESS: The patient has dementia and cannot provide full information, although the patient was recently hospitalized, and information is taken from nursing staff and records. She is 83 and has history of moderate dementia, hypertension, chronic back pain, wheelchair bound, GERD, hyperlipidemia, and recent urinary tract infection with 2 organisms growing in the urine cultures including Streptococcus and E. coli, fairly sensitive to antibiotics, who returns to the Emergency from her [facility] for confusion x3 days. In the emergency department, she was found to have an abnormal urinalysis, elevated white blood cell count of 25, lactic acidosis, and some electrolyte abnormalities. She has no recollection of symptoms. REVIEW OF SYSTEMS: Limited due to dementia, but all systems are reviewed and negative except for the ones mentioned above. PAST MEDICAL HISTORY: As stated on history of present illness. PAST SURGICAL HISTORY: Unable to obtain. SOCIAL HISTORY: [facility]. Negative tobacco, alcohol, and illicit drugs. She has an out of the hospital DNR. FAMILY HISTORY: Positive for hypertension and hyperlipidemia. ALLERGIES: SEE ALLERGY RECORDS. PHYSICAL EXAMINATION: VITAL SIGNS: Blood pressure 123/60, pulse 84, respirations 18, oxygen saturation 92% on room air, temperature 97.9 degrees Fahrenheit. GENERAL: She appears toxic. She is awake and cooperative. She is oriented in person and knows she is in the hospital. HEAD AND NECK: Pupils are reactive to light. Extraocular muscles are intact. Mucous membranes are dry. Neck is supple. No bruits. CARDIOVASCULAR: Rhythm and rate are regular. No audible murmurs, rubs, or gallops. PULMONARY: Clear to auscultation bilaterally. No wheezes, rhonchi, or crackles. ABDOMEN: Soft, nontender, and nondistended. Positive bowel sounds. EXTREMITIES: No palpable edema. Pulses are symmetric. Range of motion is intact. SKIN: Generalized pallor. Capillary refill less than 3 seconds. No breakdown. NEUROLOGIC: Cranial nerves 2 through 12 appear grossly intact. Muscle strength is 4/5 in the lower extremities. LABORATORY ABNORMALITIES: White blood cell count 25, hemoglobin 11.2, hematocrit 34.5, bands 14%. Potassium 3.4, glucose 119. Lactic acid 3.8 and after volume resuscitation 2.4. Magnesium 1.1. Urinalysis, abnormal with greater than 50 to oba-prpoiazl-ur-count white cells with large leukocyte esterase level. Current medications are reviewed. Blood cultures were obtained. Brain CT without contrast report was reviewed, as well as chest x-ray report and abdominal CT. ASSESSMENT AND PLAN: 1. Acute recurrent urinary tract infection: Zosyn. IV fluids. 2. Right obstructive uropathy: Obstructing nephrolithiasis on the right side causing hydronephrosis. We will consult Urology for evaluation. Continue antibiotics as above. 3. Possible sepsis secondary to urinary tract infection: No full criteria, but elevated lactic acid that is improving after resuscitation and white blood cell count elevation with bandemia and a source of infection. Continue sepsis protocol. 4. Leukocytosis secondary to urinary tract infection. 5. Lactic acidosis: Suspect secondary to infection. Improving after volume resuscitation. 6. Hypomagnesemia: We will replace and monitor. 7. Mild hypokalemia: We will replace and monitor. 8. Moderate dementia: Continue home medication. 9. Essential hypertension: Currently at goal. 10. Diabetes mellitus, type 2: The patient is taking metformin at the f[facility]. We will use sliding scale while in the hospital. 11. Hyperlipidemia: No issues. 12. Gastroesophageal reflux disease: Continue home medication. 13. Wheelchair bound: Fall precautions and PT evaluation. Bed to chair p.r.n. CODE STATUS: DNR. CORE MEASURES: Lovenox. DISPOSITION: Medical/Surgical unit. PROGNOSIS: Guarded. CLINICAL STATUS: Guarded. EXPECTED LENGTH OF STAY: Greater than 2 midnights. Medical necessity to remain in the hospital for suspected sepsis secondary to urinary tract infection and possible urologic procedure. TOTAL TIME SPENT: 35 minutes. Job ID: [id number]
[2018-11-29] MEDS ORDERED: Famotidine/PF 20 mg/2ml Vial ONE (15:43)
[2018-11-29] MEDS ORDERED: Fentanyl 100 MCG/2 ML VIAL ONE (15:43)
[2018-11-29] MEDS ORDERED: Iothalamate Meglumine 60% 50 ML VIAL FS ONE (16:02)
[2018-11-29] MEDS ORDERED: Ondansetron HCl/PF 4 MG/2 ML Vial IVP PRN (16:15)
--- NOTE | 2018-11-29 17:24 | RAD ---
EXAM: XR IVP Retrograde PROVIDED CLINICAL HISTORY: Generalized abdominal pain and right ureteral calculus. COMPARISON: CT abdomen on 11/28/2018. FINDINGS/IMPRESSION: Bomb Technician image demonstrates calcification overlying the right upper quadrant in the expected location of the right UPJ adjacent to the L3 vertebral body. Subsequent images demonstrate guidewire in place overlying the right ureter and right renal collecting system with final image demonstrating a double pigtail right ureteral stent in place. Correlation with intraoperative findings is recommended.
[2018-11-29] MEDS: Magnesium 2 GM/50 ML 2 GM in Premix Bag 1 BAG IVPB SCH ×2 (18:30→18:48)
[2018-11-29] MEDS: Melatonin 3 MG TAB PO SCH (20:55)
[2018-11-29] MEDS ORDERED: QUETIAPINE FUMARATE 100 MG PO SCH (21:00)
[2018-11-29] MEDS ORDERED: MELATONIN PO SCH (21:00)
[2018-11-29] MEDS ORDERED: Non-Formulary Item 1 EACH (Latanoprost/Pf [Latanoprost 0.005% Eye Drop] 1 DROP) EA EYE SCH (21:00)
[2018-11-29] MEDS: Latanoprost 0.005% Ophth Soln 2.5 ml Bottle EA EYE SCH (22:23)
--- NOTE | 2018-11-29 23:05 | OP ---
DATE OF PROCEDURE: 11/29/2018 PREOPERATIVE DIAGNOSES: An 83-year-old female, who presents with leukocytosis, elevated lactic acid. Urine culture suspicious for urinary tract infection with obstructing right proximal ureteral calculi 10 mm. POSTOPERATIVE DIAGNOSES: An 83-year-old female, who presents with leukocytosis, elevated lactic acid. Urine culture suspicious for urinary tract infection with obstructing right proximal ureteral calculi 10 mm. PROCEDURES PERFORMED: Cystoscopy, right 6 x 26 stent; 16-[place] Citizen 10 mL Dimas catheter placement. ANESTHESIA: LMA. COMPLICATIONS: None apparent. DISPOSITION: To recovery room in stable condition. INDICATIONS FOR PROCEDURE AND HISTORY: Ms. Arriaga is an 83-year-old female with history of diabetes, severe dementia, who presented with mental status changes, severe leukocytosis. Her urine is suspicious for UTI. The CT demonstrated a 10 mm UPJ proximal ureteral stone. She was advised regarding ureteral stent placement. Informed consent obtained. Risks and complications and indications as well as likely secondary procedure were reviewed. DESCRIPTION OF PROCEDURE: After an informed consent was signed, the patient was taken to the operating room, placed in a dorsal lithotomy position with the genital area prepped and draped in the usual surgical sterile fashion. A 21-[place] Citizen cystoscope was utilized for cystoscopy after broad-spectrum antibiotics were provided with bilateral MAYRA hoses. Upon entering the bladder, there was debris within the bladder consistent with cystitis. The UOs were identified in normal anatomical location. There was no suspicious tumors or bladder stones of concern. An open-ended catheter was intubated to the level of the stone at the proximal ureter. A 6 x 26 double-J ureteral stent was passed over a 0.35 Sensor wire, which passed without difficulty. The stone did appear to be pushed into the renal pelvis The stent passed without difficulty. A 16-[place] Citizen 10 mL Dimas catheter was placed to gravity. She will be monitored with broad-spectrum antibiotics. She will need a Cardiology consult to proceed with general anesthesia for ureteral stent, laser lithotripsy as it will take a longer period of time under anesthesia for her to proceed. Continue Zosyn until final sensitivity. [facility] [id number] [facility]
[2018-11-30] MEDS: Piperacillin/Tazobactam 3.375 GM in Sodium Chloride 0.9% 100 ML IVPB SCH ×5 (00:12→23:00)
[2018-11-30 06:51] LABS: #Eosinphils 0.1 thou/uL (0.0-0.7); #Monocytes 0.7 thou/uL (0.11-0.59); #Neutrophils 7.2 thou/uL (1.40-6.50); %Basophils 0.3 % (0.0-1.0); %Eosinophils 0.7 % (0.0-10.0); %Lymphocytes 10.8 % (21.0-51.0); %Monocytes 8.1 % (0.0-10.0); %Neutrophils 80.1 % (42.0-75.0); Hemoglobin 8.8 g/dL (12.0-16.0); Mean Corpuscular HGB CONC 32.8 g/dL (32.0-36.0); Mean Corpuscular Hemoglobin 30.9 pg (27.0-31.0); Mean Corpuscular Volume 94.4 fL (78.0-98.0); Mean Platelet Volume 8.3 fL (7.4-10.4); Platelet Count 277 thou/uL (130-400); RBC Distribution Width 13.3 % (11.5-14.5); Red Blood Cell (RBC) Count 2.84 mill/uL (4.20-5.40); White Blood Cell (WBC) Count 8.9 thou/uL (4.8-10.8)
[2018-11-30 06:59] LABS: Lactic Acid 0.7 mmol/L (0.5-2.2)
[2018-11-30 07:04] LABS: ALT (SGPT) 12 U/L (8-55); AST (SGOT) 11 U/L (5-34); Albumin 2.5 g/dL (3.4-4.8); Alkaline Phosphatase 68 U/L (40-150); Anion Gap 8 mmol/L (10-20); BUN (Urea Nitrogen) 8 mg/dL (9.8-20.1); Bilirubin, Total 0.4 mg/dL (0.2-1.2); Calc. Creatinine Clearance 53 mL/min (70-130); Calcium 7.8 mg/dL (7.8-10.44); Carbon Dioxide 27 mmol/L (23-31); Chloride 112 mmol/L (98-107); Estimated GFR-MDRD 78; Globulin 2.3 g/dL (2.4-3.5); Glucose 109 mg/dL (83-110); Magnesium 1.8 mg/dL (1.6-2.6); Protein, Total 4.8 g/dL (6.0-8.3); Sodium 144 mmol/L (136-145)
[2018-11-30 07:10] LABS: Potassium 2.9 mmol/L (3.5-5.1)
[2018-11-30] MEDS ORDERED: Potassium Chloride 40 MEQ in Sodium Chloride 0.9% 250 ML 250 ML IVPB SCH (08:00)
[2018-11-30] MEDS: Calcium Polycarbophil 625 MG TAB PO SCH ×2 (09:54→19:33)
[2018-11-30] MEDS: Enoxaparin Sodium 30 MG/0.3 ML SYRINGE SC SCH (09:54)
[2018-11-30] MEDS: Donepezil HCl 5 MG TAB PO SCH ×2 (09:54→19:33)
[2018-11-30] MEDS: Mirtazapine 30 MG TAB PO SCH ×2 (09:54→19:34)
[2018-11-30] MEDS: Sodium Chloride 0.9% 1,000 ML IV SCH ×2 (09:57→21:13)
--- NOTE | 2018-11-30 11:59 | PRG ---
DATE OF SERVICE: 11/30/2018 SUBJECTIVE: The patient without complaints. OBJECTIVE: VITAL SIGNS: Stable. Afebrile. I's and O's 200 in and 775 out. ABDOMEN: Soft, nontender, and nondistended. Dimas catheter draining clear yellow urine. PERTINENT LABORATORY DATA: White count decreased from 25,000-8.9, hemoglobin 8.8, and platelet 277. Resolution of bandemia, status post stent. Renal function, stable. Creatinine 0.7. Potassium 2.9. Blood culture, negative. Urine culture demonstrating E coli, pansensitive, on Zosyn. IMPRESSION AND PLAN: 1. An 83-year-old female, postop day #1, status post cysto, right 6 x 26 double- J ureteral stent due to right hydronephrosis, 10 mm proximal ureteral calculi. 2. Escherichia coli urinary tract infection. 3. Leukocytosis, bandemia, resolved, status post stent. 4. History of abnormal EKG. Cardiac clearance advised, due to advanced age and abnormal EKG, formal cardiac clearance will be warranted to proceed with ureteroscopy, laser lithotripsy, as I anticipate intraoperative time due to large stone burden approximately an hour to hour and a half. will proceed with ureteroscopy, laser lithotripsy, when repeat urine culture, negative, pending cardiac clearance. Job ID: [id number] [facility]
--- NOTE | 2018-11-30 13:16 | PRG ---
DATE OF SERVICE: 11/30/2018 CHIEF COMPLAINT: Confusion. HISTORY OF PRESENT ILLNESS: An 83-year-old with history of moderate dementia, hypertension, chronic back pain, wheelchair-bound, GERD, hyperlipidemia, recent urinary tract infection, who came from [facility] for confusion, and found to have abnormal urinalysis, elevated white blood cell count, lactic acidosis, electrolyte abnormalities. SUBJECTIVE: The patient seen and evaluated at bedside. She has no recollection of events. She is a poor historian due to dementia. Per nurse, hypoglycemia, normal white blood cell count. The patient underwent cystoscopy with right ureteral stenting. No other acute events. REVIEW OF SYSTEMS: Limited due to dementia. PHYSICAL EXAMINATION: VITAL SIGNS: Blood pressure 131/58, pulse 59, respirations 18, oxygen saturation 93% on room air, temperature 98.2 Fahrenheit. GENERAL: No acute distress. She is awake and cooperative. She is oriented in person. HEAD AND NECK: Pupils are reactive to light. Extraocular muscles are intact. Mucous membranes are moist. NECK: Supple with no bruits. CARDIOVASCULAR: Rhythm and rate regular. No audible murmurs, rubs, or gallops. PULMONARY: Clear to auscultation bilaterally. No wheezes, rhonchi, or crackles. ABDOMEN: Soft, nontender, nondistended, positive bowel sounds. EXTREMITIES: No palpable edema. Pulses are symmetric. Range of motion is intact. SKIN: Generalized pallor. Capillary refill less than 3 seconds. No breakdown. NEUROLOGIC: Cranial nerves 2 through 12 are grossly intact. Muscle strength is 4/5 in the lower extremities. LABORATORY DATA: White blood cell count is not normalized, hemoglobin is 8.8, hematocrit 27. Potassium 2.9, chloride 112, lactic acid is 0.7. Urine culture, positive for E. coli that is sensitive to most antibiotics. Blood cultures negative to date. CURRENT MEDICATIONS: Reviewed. ASSESSMENT AND PLAN: 1. Acute recurrent Escherichia coli urinary tract infection. Continue Zosyn to cover the Escherichia coli. 2. Right obstructive uropathy secondary to nephrolithiasis, status post ureteral stenting, day #1. Urology follows. Continue antibiotics as above. 3. Possible sepsis secondary to urinary tract infection ruled out, likely presentation due to nephrolithiasis. 4. Leukocytosis, secondary to urinary tract infection and nephrolithiasis, resolved. 5. Acute lactic acidosis, nonspecific, resolved. 6. Hypomagnesemia, resolved. 7. Acute hypokalemia. Continue replacement and monitor. 8. Moderate dementia. Appears to be at baseline now. 9. Hypertension, currently at goal. 10. Diabetes mellitus, type 2, controlled. 11. Hyperlipidemia, no issues. 12. Gastroesophageal reflux disease, no issues. 13. Wheelchair-bound, fall precautions. 14. Nonspecific anemia. It appears chronic. CODE STATUS: DNR. CORE MEASURE: Lovenox. DISPOSITION: Medical/surgical unit. PROGNOSIS: Guarded. CLINICAL STATUS: Guarded. EXPECTED DISCHARGE: To be determined. TOTAL TIME SPENT: 32 minutes. Job ID: [id number]
[2018-11-30] MEDS ORDERED: PROPOFOL 200 MG/20 ML VIAL ONE (13:17)
[2018-11-30] MEDS ORDERED: Lidocaine 1% PF 5 ML VIAL ONE (13:17)
[2018-11-30] MEDS ORDERED: Ondansetron PF 4 MG/2 ML Vial ONE (13:17)
[2018-11-30] MEDS: Melatonin 3 MG TAB PO SCH (21:12)
[2018-11-30] MEDS: Latanoprost 0.005% Ophth Soln 2.5 ml Bottle EA EYE SCH (21:12)
--- NOTE | 2018-11-30 21:43 | CON ---
DATE OF CONSULTATION: HISTORY OF PRESENT ILLNESS: Carol Arriaga is an 83-year-old white female with dementia, who cannot provide good history. I have seen her in the past in September 1999 for evaluation of palpitations. 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 This was negative for ischemia. She also had a Cardiolite scan in approximately 2010 that was unremarkable. She now is admitted with recent urinary tract infections, found to have nephrolithiasis and consideration is given to lithotripsy requiring general anesthesia. Cardiology consultation is requested for an abnormal EKG. Ms. Arriaga denies any chest discomfort or shortness of breath. However, I am not certain as to the accuracy of her answers. PAST MEDICAL HISTORY: She denies any history of hypertension, diabetes or hypercholesterolemia. However, she is taking Metformin. MEDICATIONS: 1. Xanax 0.5 mg t.i.d. 2. Colace 100 daily. 3. Aricept 5 mg daily. 4. Melatonin 2 mg q.h.s. 5. Metformin 1000 b.i.d. 6. Remeron 15 mg daily. 7. Zofran 5 mg t.i.d. 8. Protonix 40 daily. 9. Sertraline 50 daily. ALLERGIES: TO AMOXICILLIN. SOCIAL HISTORY: She does not smoke or drink. REVIEW OF SYSTEMS: Unobtainable with the patient's dementia. PHYSICAL EXAMINATION: VITAL SIGNS: Blood pressure 147/66, pulse is 64. HEENT: PERRL. NECK: Supple. CHEST: Clear. CARDIAC: S1 and S2 normal without any S3, S4, or murmurs. ABDOMEN: Normal bowel sounds without tenderness. EXTREMITIES: Reveal no clubbing, cyanosis, or edema. NEUROLOGIC: The patient moves all extremities. She does have dementia. DIAGNOSTIC DATA: EKG reveals normal sinus rhythm with nonspecific ST and T-wave changes, which apparently are new from her previous EKGs that I have in my office. LABORATORY DATA: Hemoglobin 8.8, hematocrit 26.8, white count 8900, platelets 277,000. Sodium 144, potassium 2.9, chloride 112, carbon dioxide 27, BUN 8, creatinine 0.71. IMPRESSION: 1. Nephrolithiasis. For Lithotripsy. 2. Nonspecific ST and T-wave changes on her EKG, which is new from before. 3. Diabetes. 4. Dementia. PLAN: Ms. Arriaga will undergo Lexiscan Cardiolite testing to further evaluate her cardiac risk. She also will have echocardiogram performed. Job ID: [id number] MTDD
[2018-12-01 04:19] LABS: #Eosinphils 0.1 thou/uL (0.0-0.7); #Lymphocytes 1.5 thou/uL (1.20-3.40); #Monocytes 0.6 thou/uL (0.11-0.59); #Neutrophils 4.4 thou/uL (1.40-6.50); %Basophils 0.6 % (0.0-1.0); %Eosinophils 1.9 % (0.0-10.0); %Lymphocytes 22.7 % (21.0-51.0); %Monocytes 9.3 % (0.0-10.0); %Neutrophils 65.5 % (42.0-75.0); Hemoglobin 8.6 g/dL (12.0-16.0); Mean Corpuscular HGB CONC 32.3 g/dL (32.0-36.0); Mean Corpuscular Hemoglobin 30.8 pg (27.0-31.0); Mean Corpuscular Volume 95.3 fL (78.0-98.0); Mean Platelet Volume 8.4 fL (7.4-10.4); Platelet Count 293 thou/uL (130-400); RBC Distribution Width 13.6 % (11.5-14.5); Red Blood Cell (RBC) Count 2.78 mill/uL (4.20-5.40); White Blood Cell (WBC) Count 6.7 thou/uL (4.8-10.8)
[2018-12-01] MEDS: Piperacillin/Tazobactam 3.375 GM in Sodium Chloride 0.9% 100 ML IVPB SCH ×4 (05:28→23:40)
[2018-12-01 05:30] LABS: Albumin 2.5 g/dL (3.4-4.8)
[2018-12-01 05:31] LABS: Chloride 114 mmol/L (98-107); Potassium 3.2 mmol/L (3.5-5.1); Sodium 143 mmol/L (136-145)
[2018-12-01 05:32] LABS: Calcium 8.1 mg/dL (7.8-10.44); Magnesium 1.3 mg/dL (1.6-2.6)
[2018-12-01 05:33] LABS: Globulin 2.3 g/dL (2.4-3.5); Glucose 146 mg/dL (83-110); Protein, Total 4.8 g/dL (6.0-8.3)
[2018-12-01 05:34] LABS: Anion Gap 12 mmol/L (10-20); Carbon Dioxide 20 mmol/L (23-31)
[2018-12-01 05:35] LABS: Bilirubin, Total 0.2 mg/dL (0.2-1.2)
[2018-12-01 05:36] LABS: Alkaline Phosphatase 64 U/L (40-150); Calc. Creatinine Clearance 52 mL/min (70-130); Estimated GFR-MDRD 76
[2018-12-01 05:37] LABS: BUN (Urea Nitrogen) 8 mg/dL (9.8-20.1)
[2018-12-01 05:38] LABS: AST (SGOT) 9 U/L (5-34)
[2018-12-01 05:39] LABS: ALT (SGPT) 13 U/L (8-55)
[2018-12-01] MEDS: Sodium Chloride 0.9% 1,000 ML IV SCH ×2 (08:57→23:30)
--- NOTE | 2018-12-01 09:21 | PRG ---
DATE OF SERVICE: 12/01/2018 SUBJECTIVE: The patient is resting comfortably. OBJECTIVE: VITAL SIGNS: Stable. ABDOMEN: Soft, nontender, nondistended. Urine output 1800 mL of clear urine output. PERTINENT LABORATORY DATA: White count decreased from 25 to 6000, platelet 293. Creatinine 0.7. Urine culture demonstrates E. coli pansensitive, currently on Zosyn. IMPRESSION AND PLAN: Ms. Arriaga is an 83-year-old female with history of Escherichia coli urinary tract infection, presented with leukocytosis, right 10 mm proximal ureteral calculi, and postop day number 2 status post cysto, right retrograde, 6 x 26 ureteral stent placement. She is hemodynamically stable. Repeat UA C and S has been ordered today. Cardiology consult appreciated. When urine culture negative, we will schedule elective ureteroscopy laser lithotripsy next week. This can be performed as an outpatient. Cardiac clearance in progress. Continue Zosyn for now. If discharged, outpatient ureteroscopy, laser lithotripsy next week, can transition to oral antibiotics. Job ID: [id number] [facility]
[2018-12-01 09:52] LABS: Bilirubin Negative (Negative); Blood, Urine Large (Negative); Clarity CLEAR (Clear); Glucose, Urine (Dipstick) Negative (Negative); Leukocyte Small (Negative); Nitrite Negative (Negative); Protein, Urine (Dipstick) Negative (Neg-Trace); Urobilinogen 0.2 mg/dL (0.2-1.0)
[2018-12-01 09:55] LABS: Bacteria/HPF None Seen HPF (None Seen); Hyaline Casts/LPF 7-10 HYALINE CAST LPF (0-3 Hyaline); Pathc Cast-AUWi Flag 1.76 (0-2.49); RBC/HPF GREATER THAN 50-TNTC HPF (0-3); Squamous Epithelial 0-3 HPF (0-3)
[2018-12-01] MEDS: Mirtazapine 30 MG TAB PO SCH (11:46)
[2018-12-01] MEDS: Donepezil HCl 5 MG TAB PO SCH (11:46)
[2018-12-01] MEDS: Enoxaparin Sodium 30 MG/0.3 ML SYRINGE SC SCH (11:47)
[2018-12-01] MEDS: Calcium Polycarbophil 625 MG TAB PO SCH (11:49)
--- NOTE | 2018-12-01 12:00 | PDOC.PN ---
- Subjective Encounter Start Date: 12/01/18 Encounter Start Time: 07:00 CC: Confusion HPI: 83 female with h/o moderate dementia, HTN, chronic back pain, wheelchair bound, GERD, HLD, recent UTI who came to the ER from [place] due to confusion, found in the ED to have abnormal UA, leukocytosis, lactci acidosis, and electrolyte abnormalities. SUBJECTIVE: Patient seen and evaluated at bedside. Poor historian due to dementia. Per nurse, mild nausea. No other acute events. ROS; Limited due to dementia - Objective Resuscitation Status - Order Detail: 11/29/18 07:52 Resuscitation Status Routine Resuscitation Status: DNAR: NO Resuscitation Discussed with: Patient has out of hospital DNR MAR Reviewed: Yes Vital Signs & Weight: Vital Signs (12 hours) Temp Pulse Resp BP Pulse Ox 12/01/18 08:00 99.1 F 53 L 18 165/71 H 94 L 12/01/18 03:31 98.6 F 57 L 16 167/67 H 95 Weight Weight 126 lb I&O: 11/30/18 12/01/18 12/02/18 06:59 06:59 06:59 Intake Total 200 2010 Output Total 775 1800 Balance -575 210 Result Diagrams: 12/01/18 03:56 12/01/18 03:56 Additional Labs: Accuchecks 12/01/18 11/30/18 11/30/18 05:30 19:37 16:08 POC Glucose 116 H 111 H 90 11/30/18 12:57 POC Glucose 99 Phys Exam - Physical Examination Constitutional: NAD AWAKE, ORIENTED IN PERSON HEENT: PERRLA, moist MMs, oral pharynx no lesions Neck: no nodes, no JVD, supple Respiratory: no wheezing, no rales, no rhonchi, clear to auscultation bilateral Cardiovascular: RRR, no significant murmur, no rub Gastrointestinal: soft, non-tender, no distention, positive bowel sounds Musculoskeletal: no edema, pulses present Neurological: non-focal, normal sensation, moves all 4 limbs Psychiatric: normal affect Skin: no rash, normal turgor, cap refill <2 seconds Deviation from normal: PALLOR Dx/Plan (1) E. coli UTI Code(s): N39.0 - URINARY TRACT INFECTION, SITE NOT SPECIFIED; B96.20 - UNSP ESCHERICHIA COLI THE CAUSE OF DISEASES CLASSD ELSWHR Status: Acute Plan: Continue Zosyn. Patient undergoing urologic procedure tomorrow (2) Obstructive uropathy Code(s): N13.9 - OBSTRUCTIVE AND REFLUX UROPATHY, UNSPECIFIED Status: Acute Plan: Status post right stenting. For removal of stone tomorrow (3) Nephrolithiasis Status: Acute Plan: See above (4) Leukocytosis Code(s): D72.829 - ELEVATED WHITE BLOOD CELL COUNT, UNSPECIFIED Status: Acute Plan: Resolved. (5) Lactic acidosis Code(s): E87.2 - ACIDOSIS Status: Acute Plan: Resolved (6) Hypomagnesemia Code(s): E83.42 - HYPOMAGNESEMIA Status: Acute Plan: Resolved (7) Hypokalemia Code(s): E87.6 - HYPOKALEMIA Status: Acute Plan: Replace and monitor (8) Dementia Code(s): F03.90 - UNSPECIFIED DEMENTIA WITHOUT BEHAVIORAL DISTURBANCE Status: Acute Qualifiers: Dementia type: unspecified type Plan: Appears at baseline mentation (9) Essential hypertension Code(s): I10 - ESSENTIAL (PRIMARY) HYPERTENSION Status: Chronic Plan: Currently at goal (10) Diabetes type 2, controlled Code(s): E11.9 - TYPE 2 DIABETES MELLITUS WITHOUT COMPLICATIONS Status: Chronic Plan: At goal. Continue current treatment (11) Dyslipidemia Code(s): E78.5 - HYPERLIPIDEMIA, UNSPECIFIED Status: Chronic (12) GERD (gastroesophageal reflux disease) Code(s): K21.9 - GASTRO-ESOPHAGEAL REFLUX DISEASE WITHOUT ESOPHAGITIS Status: Chronic (13) Anemia Code(s): D64.9 - ANEMIA, UNSPECIFIED Status: Acute Qualifiers: Anemia type: unspecified type Qualified Code(s): D64.9 - Anemia, unspecified - Plan cont current plan of care CODE; DNR CORE; LOVENOX DISPOSITION; MED-SURG PROGNOSIS; GUARDED CLINICAL STATUS; GUARDED EXPECTED DISCHARGE; TO BE DETERMINED TOTAL TIME SPENT; 30 MINUTES DATE OF SERVICE; 12/01/2018
[2018-12-01] MEDS ORDERED: Ondansetron PF 4 MG/2 ML Vial SLOW IVP PRN (12:08)
--- NOTE | 2018-12-01 13:20 | NM ---
RADIONUCLEOTIDE STRESS AND REST MYOCARDIAL PERFUSION SCAN WITH CT ATTENUATION CORRECTION AND SPECT IM AGING LEFT VENTRICULAR WALL MOTION EVALUATION AND EJECTION FRACTION HISTORY: Chest pain. FINDINGS: Lexiscan protocol. There is homogeneous uptake of radiotracer throughout the left ventricul ar myocardium on the stress and rest images. No focal perfusion defect or reversibility. QGS analysis of gated SPECT images shows no focal wall motion abnormalities. Ejection fraction calcul ated at 68%. IMPRESSION: Normal myocardial perfusion scan. Normal LVEF.
[2018-12-01 17:11] LABS: INR-International Normal Ratio 1.1; Prothrombin Time 14.4 SEC (12.0-14.7)
[2018-12-01 17:12] LABS: PTT 39.6 SEC (22.9-36.1)
[2018-12-01] MEDS ORDERED: Regadenoson 0.4 MG/5 ML SYRINGE ONE (17:47)
[2018-12-01] MEDS: Melatonin 3 MG TAB PO SCH (21:18)
[2018-12-01] MEDS: Latanoprost 0.005% Ophth Soln 2.5 ml Bottle EA EYE SCH (21:18)
[2018-12-01] MEDS ORDERED: Acetaminophen 325 MG TAB PO PRN (21:37)
[2018-12-02 04:33] LABS: #Basophils 0.1 thou/uL (0.0-0.2); #Eosinphils 0.1 thou/uL (0.0-0.7); #Lymphocytes 1.4 thou/uL (1.20-3.40); #Monocytes 0.6 thou/uL (0.11-0.59); #Neutrophils 3.9 thou/uL (1.40-6.50); %Basophils 0.8 % (0.0-1.0); %Eosinophils 2.1 % (0.0-10.0); %Lymphocytes 23.8 % (21.0-51.0); %Monocytes 9.3 % (0.0-10.0); Hemoglobin 9.4 g/dL (12.0-16.0); Mean Corpuscular HGB CONC 32.8 g/dL (32.0-36.0); Mean Corpuscular Volume 94.4 fL (78.0-98.0); Mean Platelet Volume 8.2 fL (7.4-10.4); Platelet Count 292 thou/uL (130-400); RBC Distribution Width 13.2 % (11.5-14.5); Red Blood Cell (RBC) Count 3.02 mill/uL (4.20-5.40)
[2018-12-02 04:50] LABS: ALT (SGPT) 8 U/L (8-55); AST (SGOT) 10 U/L (5-34); Albumin 2.7 g/dL (3.4-4.8); Alkaline Phosphatase 67 U/L (40-150); Anion Gap 12 mmol/L (10-20); BUN (Urea Nitrogen) 5 mg/dL (9.8-20.1); Bilirubin, Total 0.4 mg/dL (0.2-1.2); Calc. Creatinine Clearance 54 mL/min (70-130); Calcium 8.2 mg/dL (7.8-10.44); Carbon Dioxide 25 mmol/L (23-31); Chloride 110 mmol/L (98-107); Estimated GFR-MDRD 80; Globulin 2.6 g/dL (2.4-3.5); Glucose 89 mg/dL (83-110); Magnesium 1.1 mg/dL (1.6-2.6); Potassium 2.9 mmol/L (3.5-5.1); Protein, Total 5.3 g/dL (6.0-8.3); Sodium 144 mmol/L (136-145)
[2018-12-02] MEDS ORDERED: Potassium Chloride 20 MEQ TAB PO SCH (05:15)
[2018-12-02] MEDS: Piperacillin/Tazobactam 3.375 GM in Sodium Chloride 0.9% 100 ML IVPB SCH ×2 (05:51→11:40)
[2018-12-02] MEDS ORDERED: Potassium Chloride 40 MEQ in Premix Bag 1 BAG IVPB SCH (07:30)
[2018-12-02] MEDS: Potassium Chloride 20 MEQ in Premix Bag 1 BAG IVPB SCH ×2 (08:49→11:35)
[2018-12-02] MEDS: Calcium Polycarbophil 625 MG TAB PO SCH (08:50)
[2018-12-02] MEDS: Mirtazapine 30 MG TAB PO SCH (08:50)
[2018-12-02] MEDS: Enoxaparin Sodium 30 MG/0.3 ML SYRINGE SC SCH (08:50)
[2018-12-02] MEDS: Donepezil HCl 5 MG TAB PO SCH (08:50)
[2018-12-02] MEDS ORDERED: hydrALAZINE 20 MG/ML VIAL SLOW IVP PRN (09:52)
--- NOTE | 2018-12-02 09:53 | PRG ---
DATE OF SERVICE: 12/02/2018 SUBJECTIVE: The patient without complaints. . OBJECTIVE: VITAL SIGNS: Stable. Afebrile. ABDOMEN: Soft, nontender, nondistended. PERTINENT LABORATORY DATA: White count of 12/02 is 6, hemoglobin 9.4, platelet 292. INR 1.1, PTT 39. Creatinine is 0.7, potassium 2.9 which is being replaced prior to her discharge today. Her previous urine culture demonstrates E coli pansensitive. Blood culture negative. Repeat urine culture is pending. IMPRESSION AND PLAN: Ms. Arriaga is an 83-year-old female with history of Escherichia coli urinary tract infection, presented with leukocytosis, right 10 mm proximal ureteral stone. Postop day #3, status post cysto right retrograde stent placement. She is hemodynamically stable. Repeat urine culture is pending. As I anticipate this will be negative, she is scheduled for outpatient ureteroscopy laser lithotripsy on 12/08, Saturday. She will likely be discharged back to her [facility]. [facility]. We will coordinate preop evaluation with Day Surgery, informed consent to be obtained per son verbally as he is the power of workers compensation defense attorney. Stress test is negative, formal cardiac clearance note pending. Continue Zosyn while in-house. Recommend when patient discharged to fpc, she must stay on prophylactic antibiotic therapy due to recent UTI Discontinue Dimas prior to discharge. Case management, primary service to call me when the patient is ready to be discharged back to [facility] today. Addendum. Patient being discharged back to her [facility]. We reached out to her son, who will come into our office for verbal consent is he is the power of workers compensation defense attorney. She is discharged with Omnicef 300 mg one by mouth twice a day by hospitalist. I am okay with this as it is sensitive to cephalosporins. Surgery scheduled December 08 pending review of follow-up urine culture, we'll cover with [employer] product development consultant to the OR. If urine culture demonstrates persistent UTI, we'll contact facility to defer her surgery. Job ID: [id number] MTDD
[2018-12-02] MEDS: POTASSIUM CHLORIDE IVPB SCH ×2 (10:55→11:35)
[2018-12-02] MEDS: SODIUM CHLORIDE 0.9% IVPB SCH ×2 (10:55→11:35)
[2018-12-02 11:17] VITALS: BP 148/69
[2018-12-02] MEDS ORDERED: Potassium Bicarbonate/Cit Ac 25 MEQ TAB PO SCH (11:30)
[2018-12-02 12:57] VITALS: TEMP 98.4
--- NOTE | 2018-12-03 04:05 | DIS ---
DATE OF ADMISSION: 11/29/2018 DATE OF DISCHARGE: 12/02/2018 ADMITTING PHYSICIAN: Dr. Coburn. PRIMARY CARE PHYSICIAN: Dr. Mika Gomez in [place], [place]. ADMITTING DIAGNOSES: 1. Acute recurrent urinary tract infection. 2. Right obstructive uropathy. 3. Possible sepsis secondary to urinary tract infection. 4. Leukocytosis. 5. Lactic acidosis. 6. Hypomagnesemia. 7. Mild hypokalemia. 8. Moderate dementia. 9. Essential hypertension. 10. Diabetes mellitus type 2. 11. Hyperlipidemia. 12. Gastroesophageal reflux disease. 13. Wheelchair bound. DISCHARGE DIAGNOSES: 1. Acute metabolic encephalopathy on top of dementia: Resolved. 2. E coli urinary tract infection (recurrent). Omnicef for 10 more days). 3. Right obstructive uropathy secondary to obstructing nephrolithiasis, status post stenting. 4. Nephrolithiasis. 5. Leukocytosis: Resolved. 6. Lactic acidosis: Resolved. 7. Sepsis ruled out: Did not meet criteria. 8. Hypomagnesemia: Resolved. 9. Hypokalemia: Replaced. 10. Moderate dementia. 11. Essential hypertension. 12. Diabetes mellitus type 2. 13. Dyslipidemia. 14. Gastroesophageal reflux disease. 15. Nonspecific anemia. 16. Wheelchair bound. CONSULTS: 1. Urology. 2. Cardiology. PROCEDURE: Right ureteral stenting. HOSPITAL COURSE: This is an 83-year-old female, admitted previously for urinary tract infection and went back to halfway with oral antibiotics, but returned to the Emergency for confusion x3 days. In the emergency department, she was found to have an elevated white blood cell count, lactic acidosis, electrolyte abnormalities, and abnormal urinalysis. CT scan of the abdomen showed an obstructive right nephrolithiasis. Urology was consulted. The patient underwent stent placement with resolution of the white blood cell count and lactic acidosis. Her level of mentation was back to her baseline. She is stable for discharge and will be following with Urology for lithotripsy of the nephrolithiasis. PHYSICAL EXAMINATION: VITAL SIGNS: Blood pressure 138/80, pulse 63, respirations 16, O2 saturation 96% on room air, temperature 98.5 Fahrenheit. GENERAL: No acute distress. Awake, alert, and oriented in person only. HEAD AND NECK: Pupils are reactive to light. Extraocular muscles intact. Mucous membranes are moist. Neck is supple. CARDIOVASCULAR: Rhythm and rate are regular. No audible murmurs, rubs, or gallops. PULMONARY: Clear to auscultation bilaterally. No wheezes, rhonchi, or crackles. ABDOMEN: Soft, nontender, nondistended. Positive bowel sounds. EXTREMITIES: No palpable edema. Pulses are symmetric. Range of motion is intact. SKIN: Generalized pallor. Capillary refill less than 3 seconds. No breakdown. NEUROLOGIC: Cranial nerves 2 through 12 are grossly intact. Deep tendon reflexes are normoreflexic. LABORATORY ABNORMALITIES: Hemoglobin 9.4, hematocrit 28.6. Potassium 2.9, will be corrected before discharge. Rest of the chemistry within normal limits. Urine culture positive for E coli. DISCHARGE DISPOSITION: [facility]. DISCHARGE CONDITION: Fair. DISCHARGE DIET: Low-sodium diet as tolerated. DISCHARGE ACTIVITY: Increase activity as tolerated. She is wheelchair bound. Fall precautions. Pressure ulcer precautions. DISCHARGE MEDICATIONS: See medical reconciliation for details. DISCHARGE FOLLOWUP: With Urology in one week for lithotripsy. With primary care physician in 1-2 weeks. DISCHARGE INSTRUCTIONS: The patient was instructed to return to the emergency department if symptoms worsen. Take medications as directed and not to miss any appointments. TIME OF DISCHARGE AND PLANNIN minutes. Job ID: [id number]
== END 2018-12-02 16:19 | DRG 659 ==
LOC: ERS 20:03 → ONC 11-29 00:13 → OBSVTOIN 11-29 07:52
PROVIDERS: ADMIT Internal Medicine; ATTEND Internal Medicine
PROC: 0T768DZ Dilation of Right Ureter with Intraluminal Device, Via Natural or Artificial Opening Endoscopic (ICD-10-PCS; principal; 2018-11-29)
PROC: 0T9B80Z Drainage of Bladder with Drainage Device, Via Natural or Artificial Opening Endoscopic (ICD-10-PCS; 2018-11-29)
PROC: BT1DYZZ Fluoroscopy of Right Kidney, Ureter and Bladder using Other Contrast (ICD-10-PCS; 2018-11-29)
DX: N13.6 Pyonephrosis (principal); G93.41 Metabolic encephalopathy; E87.2 Acidosis; Z66 Do not resuscitate; B96.20 Unspecified Escherichia coli [E. coli] as the cause of diseases classified elsewhere; I10 Essential (primary) hypertension; F41.9 Anxiety disorder, unspecified; F32.9 Major depressive disorder, single episode, unspecified; H90.5 Unspecified sensorineural hearing loss; H40.9 Unspecified glaucoma; K21.9 Gastro-esophageal reflux disease without esophagitis; E78.5 Hyperlipidemia, unspecified; E83.42 Hypomagnesemia; E87.6 Hypokalemia; K58.9 Irritable bowel syndrome, unspecified; G30.9 Alzheimer's disease, unspecified; F02.80 Dementia in other diseases classified elsewhere, unspecified severity, without behavioral disturbance, psychotic disturbance, mood disturbance, and anxiety; D64.9 Anemia, unspecified; Z16.20 Resistance to unspecified antibiotic; Z88.1 Allergy status to other antibiotic agents; Z85.030 Personal history of malignant carcinoid tumor of large intestine; Z99.3 Dependence on wheelchair; Z90.49 Acquired absence of other specified parts of digestive tract; Z90.710 Acquired absence of both cervix and uterus; Z87.891 Personal history of nicotine dependence; Z79.84 Long term (current) use of oral hypoglycemic drugs; Z79.899 Other long term (current) drug therapy; Z85.828 Personal history of other malignant neoplasm of skin; E11.9 Type 2 diabetes mellitus without complications; G89.29 Other chronic pain
CPT/HCPCS: 36415; 36416; 51701; 70450; 71045; 74176; 74420; 78452; 80053; 81001; 81003; 81015; 82550; 82607; 82746; 83605; 83690; 83735; 84443; 84484; 85025; 85610; 85730; 87040; 87077; 87086; 87186; 93005; 93017; 93306; 94760; 96361; 96365; 96375; A4353; A9500; C1758; C1769; J0131; J0360; J0696; J1580; J1650; J2001; J2405; J2543; J2704; J2785; J3010; J3370; J3475; J3480; J3490; J7050; Q9961; S0028

== ENCOUNTER 2018-12-08 07:46 | Inpatient (IN) | payer MEDICARE, OTHER ==
[2018-12-08] MEDS ORDERED: Levofloxacin 500 mg/D5W 100 ml Premix Bag ONE (08:39)
[2018-12-08 09:50] LABS: Anion Gap 12 mmol/L (10-20); BUN (Urea Nitrogen) 11 mg/dL (9.8-20.1); Calc. Creatinine Clearance 50 mL/min (70-130); Carbon Dioxide 27 mmol/L (23-31); Chloride 107 mmol/L (98-107); Estimated GFR-MDRD 73; Glucose 106 mg/dL (83-110); Sodium 143 mmol/L (136-145)
[2018-12-08 09:53] LABS: Potassium 2.9 mmol/L (3.5-5.1)
--- NOTE | 2018-12-08 10:23 | RAD ---
SUPINE ABDOMEN: Date: 12/08/18 INDICATION: Preop. FINDINGS/IMPRESSION: There is a right double pigtail ureteral stent in place. Bowel gas pattern unremarkable. Faint densit y, possibly calcific, is seen adjacent to the proximal aspect of the stent. Calcifications adjacent t o the distal pigtail appear to represent phleboliths; however, small ureteral or bladder calculi jef ot be excluded. POS: [facility]
[2018-12-08] MEDS ORDERED: Morphine 2 MG/ML SYRINGE ONE (11:54)
--- NOTE | 2018-12-08 12:55 | CON ---
DATE OF CONSULTATION: 12/08/2018 REASON FOR CONSULT: Hypokalemia. HISTORY OF PRESENT ILLNESS: Ms. Arriaga is an 83-year-old female with history of severe dementia, Alzheimer's, resident of [facility], who presented last week and a half ago due to mental status changes. I did see the patient in-house regarding CT demonstrating hydronephrosis and a large right proximal ureteral stone. She was previously discharged from [facility] due to UTI, and re-presented due to worsening infection complication. When she presented earlier last week, her blood pressure was stable; however, had white count of 25,000 and 14 bands. Her A1c is 6.2. Renal function is stable. Her lactic acid normalized. Urine culture demonstrated E. coli pansensitive. Her repeat urine culture is negative. She had hypokalemia, which was treated with IV K-rider prior to her discharge on recent admission. I did recheck her basic metabolic profile this morning prior to surgery; however, it has persistent low potassium of 2.9. Per Anesthesia, Surgery is canceled that she requires medical admission for hypokalemia. I did contact Dr. Alonzo, who is the admitting hospitalist, who accepted the patient to medically optimize for hypokalemia. Per son, the patient has a decreased oral intake. PAST MEDICAL HISTORY: 1. Hypertension. 2. Chronic abdominal pain. 3. Irritable bowel. 4. Anxiety, depression. 5. Severe dementia. 6. Alzheimer's. 7. History of narcotic-seeking behavior per Dr. Duron's consult in 2010. 8. Extensive abdominal adhesions. 9. History of colon carcinoid tumor status post removal in 2003. 10. History of basal cell. 11. History of kidney stone. 12. Hearing loss. 13. Glaucoma. 14. Ulcerative colitis. PAST SURGICAL HISTORY: Colon resection, appendectomy, cholecystectomy, hysterectomy, bilateral breast lumpectomies, psychiatric, anxiety, depression, severe dementia. SOCIAL HISTORY: Lives in [facility]. Denies illicit drug use. Son is a power of energy attorney, who has signed a surgical consent. FAMILY HISTORY: Noncontributory. ALLERGIES: AMOXICILLIN. CURRENT MEDICATIONS: Include, 1. Acetaminophen. 2. Xanax. 3. Fiber laxative. 4. Cefdinir. 5. Dulcolax. 6. . 7. Vitamin B12. 8. Latanoprost. 9. Magnesium. 10. Milk Of Magnesia. 11. Melatonin. 12. Metformin. 13. Zofran. 14. Seroquel. 15. MiraLAX. LABORATORY STUDIES: Hemoglobin A1c is 6.2 in 2016. Creatinine 0.8. White count 6, hemoglobin 9.4. INR and PTT are unremarkable. Sodium today is 2.9, creatinine 0.7. Repeat urine culture is negative from December 01. Previous urine culture November [address] coli pansensitive. CT of the abdomen and pelvis in comparison to 2016, which demonstrates right 6 to [address] November 28, 2018, demonstrates 9 to 10 mm right UPJ stone with hydronephrosis. PE: Gen. patient seen and examined preop day stay. Son at bedside. In no acute distress HEENT: Unremarkable Heart: Regular rate Lungs: Clear to auscultation Abdomen: Nontender nondistended, midline laparotomy incision. No CVA tenderness : As previous severe atrophic vaginitis, prolapsed urethral mucosa. Extremities: No cyanosis clubbing or edema Neurologic: Limited, due to patient's mental status. Limited mobility. IMPRESSION AND PLAN: Ms. Arriaga is an 83-year-old female with past medical history, 1. Diabetes. 2. Severe dementia. 3. Hypertension. 4. Colon resection. 5. Ulcerative colitis. 6. History of kidney stone. Recent admission due to urinary tract infection, Escherichia coli pansensitive with hydronephrosis demonstrating 9 to 10 mm proximal ureteral stone status post ureteral stent with resolution of SIRS with normalization of leukocytosis. She was monitored in-house with Zosyn, repeat urine culture negative. She has been on Omnicef prophylactically until OR this morning; however, due to persistent hypokalemia, the patient's surgery has been canceled per Anesthesia, recommending medical admission to optimize, replace potassium. I spoke with hospitalist, will admit for optimization, replacing the potassium. Her surgery has been rescheduled for this Saturday. will keep the patient on antibiotic regimen. Cardiac clearance was obtained in-house by Dr. Chan, nuclear stress test demonstrates unremarkable findings with normal EF. Will be n.p.o. after midnight Saturday for OR on Saturday. Consent obtained by power of energy attorney, son, in chart. Job ID: [id number] MTDD
[2018-12-08] MEDS ORDERED: Calcium Carbonate 500 MG ChewTAB PO PRN (13:21)
[2018-12-08] MEDS ORDERED: Bisacodyl 5 MG TAB PO PRN (13:21)
[2018-12-08] MEDS ORDERED: Sodium Chloride 0.65% Nasal 44 ML BOT EA NARE PRN (13:21)
[2018-12-08] MEDS ORDERED: Senokot S 8.6-50 MG TAB PO PRN (13:21)
[2018-12-08] MEDS ORDERED: Ondansetron PF 4 MG/2 ML Vial IVP PRN (13:21)
[2018-12-08] MEDS ORDERED: Bisacodyl 10 MG SUPP PR PRN (13:21)
[2018-12-08] MEDS ORDERED: HYDROcodone/Acetaminophen 5/325 mg Tablet PO PRN (13:21)
[2018-12-08] MEDS ORDERED: Nitroglycerin 0.4 MG TAB (25 Tab Bottle) SL PRN (13:21)
[2018-12-08] MEDS ORDERED: hydrALAZINE 20 MG/ML VIAL SLOW IVP PRN (13:21)
[2018-12-08] MEDS ORDERED: Benzonatate 100 MG CAP PO PRN (13:21)
[2018-12-08] MEDS ORDERED: Acetaminophen 325 MG TAB PO PRN (13:21)
[2018-12-08] MEDS ORDERED: Magnesium 2 GM/50 ML 2 GM in Premix Bag 1 BAG IVPB SCH (14:15)
[2018-12-08] MEDS ORDERED: Prevnar 13-Val Conj/PF 0.5 ML SYRINGE IM ONE (15:30)
[2018-12-08] MEDS ORDERED: Calcium Polycarbophil 625 MG TAB PO PRN (15:42)
[2018-12-08] MEDS ORDERED: Ergocalciferol 1.25 MG(50,000 UNITS) CAP PO SCH (15:45)
[2018-12-08] MEDS ORDERED: Dextrose 50% Abboject 50 ML SYRINGE SLOW IVP PRN (15:50)
[2018-12-08] MEDS ORDERED: HumaLOG 300 UNITS/3 ML VIAL SC PRN ×2 (15:50)
[2018-12-08] MEDS ORDERED: Dextrose 5% in Water 1,000 ML IV PRN (15:50)
[2018-12-08] MEDS ORDERED: Melatonin 3 MG TAB PO PRN (16:30)
[2018-12-08] MEDS: Potassium Chloride 20 MEQ in Premix Bag 1 BAG IVPB SCH ×2 (16:31→16:32)
--- NOTE | 2018-12-08 16:36 | HP ---
PRIMARY CARE PHYSICIAN: Mika Gomez MD CHIEF COMPLAINT: Hypokalemia. HISTORY OF PRESENTING ILLNESS: Ms. Arriaga is an 83-year-old female with history of advanced dementia, who lives in dementia unit in [facility] and has also history of hypertension, chronic back pain, wheelchair-bound status, dyslipidemia and recurrent UTI. She is being admitted as a direct admit from day stay by urologist, Dr. Murphy. History is mainly obtained by the chart review and discussion with Dr. Murphy. Ms. Arriaga was recently admitted to our facility from 11/29 to 12/02/2018. At that time, she was treated for acute recurrent urinary tract infection and right-sided obstructive uropathy with hydronephrosis and metabolic encephalopathy. Dr. Murphy saw her in the hospital at that time and she underwent right ureteral stenting. She was discharged back to [facility]. Discharge potassium on 12/02 was 2.9, for which she received IV potassium supplement prior to discharge. Today, she was seen in the day stay by Dr. Murphy for a prescheduled surgery for laser lithotripsy. Repeat labs, however, showed potassium persistently low at 2.9, so surgery was canceled and now she is being admitted for hypokalemia. At the time of my evaluation, the patient is lying comfortably in the bed. She has received a total of 40 mEq of potassium chloride so far. Magnesium was checked and was found to be low, which will be supplemented as well. At this time, she denies any pain or discomfort. History is limited because of severe dementia. PAST MEDICAL HISTORY: 1. Dementia. 2. Hypertension. 3. Chronic back pain. 4. Wheelchair bound status. 5. GERD. 6. Dyslipidemia. 7. Recurrent UTI with recent culture growing E coli. 8. History of colon carcinoid cancer as per the EMR. PAST SURGICAL HISTORY: 1. History of right-sided ureteral stent earlier this month. 2. Cholecystectomy. 3. Hysterectomy. 4. Colon resection for the carcinoid tumor. 5. Bilateral breast lumpectomy. SOCIAL HISTORY: She is a resident at [facility] Dementia Unit. As per the EMR, there is no history of alcohol or tobacco abuse. FAMILY HISTORY: Positive for hypertension and dyslipidemia. ALLERGIES: LISTED AMOXICILLIN, VANCOMYCIN, AND ADHESIVE TAPE. HOME MEDICATIONS: 1. Tylenol p.r.n. 2. Alprazolam 0.5 mg four times a day. 3. Laxative fiber daily. 4. Vitamin D2 weekly. 5. Melatonin 2 mg at bedtime. 6. Zofran p.r.n. 7. Seroquel 50 mg at bedtime. CODE STATUS: Do not resuscitate or intubate. Confirmed as available in the [facility] from out of hospital and inpatient DNR as scanned in the system. REVIEW OF SYSTEMS: It is limited as the patient has severe dementia and is not able to answer most of my questions. She denies any pain or discomfort at this time. LABORATORY DATA: Sodium 143 and potassium 2.9, otherwise unremarkable. PHYSICAL EXAMINATION: VITAL SIGNS: Most recent temperature 98.2, pulse 65, respirations 16, saturating 99% on 2 L nasal cannula, and blood pressure 154/75. GENERAL: No acute distress. Awake, alert, oriented at least to self. Appears comfortable. HEENT: Mucous membrane is slightly dry. No oropharyngeal exudate or erythema. Head is normocephalic and atraumatic. Pupils equal and reactive to light and accommodation. Extraocular movement intact. NECK: Supple without any lymphadenopathy, JVD or bruit. CHEST: Clear to auscultation without any wheezing, rales or rhonchi. HEART: Rate and rhythm is regular. ABDOMEN: Soft, nontender, and nondistended with positive bowel sounds. EXTREMITIES: Free of any cyanosis, clubbing or edema. NEUROLOGICAL: Nonfocal. SKIN: Free of any rashes or bruises. Feels warm and dry to touch. PSYCHIATRIC: Normal affect. IMPRESSION AND PLAN: 1. Hypokalemia. The patient has received a total of 40 mEq potassium chloride. Magnesium level was checked and it was low at 1.3. We will supplement that as well and recheck in the morning. 2. Recent right-sided hydronephrosis, status post stenting, with a history of recurrent urinary tract infection. The patient was seen by Dr. Murphy from Urology and has been started on empiric Rocephin. The plan is to undergo laser lithotripsy on Saturday, that is a day from tomorrow. She will be n.p.o. after midnight starting tomorrow. She is otherwise hemodynamically stable. Her urine culture from 12/01 is negative. The urine culture from 11/28/2018 had E coli, which was rather pansensitive, for which she was treated in the hospital. 3. Alzheimer's/dementia, stable. Resume home medications once confirmed. 4. Hypertension, currently controlled. Restart home medications once confirmed. 5. Diabetes mellitus type 2. The patient takes metformin in the long term. This will be held for now to avoid acidosis and renal failure as the patient will be n.p.o. and she also showing signs of poor oral intake. We will start her on insulin sliding scale with frequent Accu-Cheks for now. 6. Code status: Do not resuscitate or intubate. Checked by myself in the [employer] entered during her last hospitalization, she has [id number] and inpatient DNR. 7. Deep venous thrombosis and gastrointestinal prophylaxis and p.r.n. medication orders. DISPOSITION: Ms. Arriaga is currently being admitted to the hospital for hypokalemia and for nephrolithiasis, for which she would undergo surgical procedure a day from tomorrow with Urology consultation. We will consult OT/PT for now. Further management will be based on her clinical course. Estimated length of stay at this time is at least 2 to 3 midnights. Job ID: [id number]
[2018-12-08] MEDS: cefTRIAXone\\ROCEPHIN 2 GM in Sodium Chloride 0.9% 100 ML IVPB SCH (16:44)
[2018-12-08] MEDS: ALPRAZolam 0.5 MG TAB PO SCH ×2 (16:45→20:32)
[2018-12-08] MEDS: Ondansetron ODT 4 MG TAB PO SCH (20:31)
[2018-12-08] MEDS: Famotidine 20 MG TAB PO SCH (20:31)
[2018-12-08] MEDS: Famotidine/PF 20 mg/2ml Vial SLOW IVP SCH (20:32)
[2018-12-09 06:37] LABS: #Eosinphils 0.2 thou/uL (0.0-0.7); #Lymphocytes 1.4 thou/uL (1.20-3.40); #Monocytes 0.6 thou/uL (0.11-0.59); #Neutrophils 3.3 thou/uL (1.40-6.50); %Basophils 0.9 % (0.0-1.0); %Eosinophils 3.9 % (0.0-10.0); %Lymphocytes 25.3 % (21.0-51.0); %Neutrophils 59.8 % (42.0-75.0); Mean Corpuscular HGB CONC 30.6 g/dL (32.0-36.0); Mean Corpuscular Hemoglobin 28.9 pg (27.0-31.0); Mean Corpuscular Volume 94.4 fL (78.0-98.0); Mean Platelet Volume 8.1 fL (7.4-10.4); Platelet Count 283 thou/uL (130-400); RBC Distribution Width 13.9 % (11.5-14.5); Red Blood Cell (RBC) Count 3.44 mill/uL (4.20-5.40); White Blood Cell (WBC) Count 5.4 thou/uL (4.8-10.8)
[2018-12-09 07:01] LABS: Anion Gap 13 mmol/L (10-20); BUN (Urea Nitrogen) 7 mg/dL (9.8-20.1); Calc. Creatinine Clearance 51 mL/min (70-130); Calcium 8.2 mg/dL (7.8-10.44); Carbon Dioxide 21 mmol/L (23-31); Chloride 109 mmol/L (98-107); Estimated GFR-MDRD 75; Glucose 91 mg/dL (83-110); Potassium 3.2 mmol/L (3.5-5.1); Sodium 140 mmol/L (136-145)
[2018-12-09] MEDS ORDERED: Potassium Chloride 20 MEQ/100 ML PREMIX BAG IVPB SCH (08:00)
[2018-12-09] MEDS ORDERED: Magnesium 2 GM/50 ML 2 GM in Premix Bag 1 BAG IVPB SCH (08:30)
[2018-12-09] MEDS: Ondansetron ODT 4 MG TAB PO SCH ×3 (08:54→21:17)
[2018-12-09] MEDS: ALPRAZolam 0.5 MG TAB PO SCH ×4 (08:54→21:18)
[2018-12-09] MEDS: Enoxaparin Sodium 40 MG/0.4 ML SYRINGE SC SCH (08:54)
[2018-12-09] MEDS: Famotidine 20 MG TAB PO SCH ×2 (08:54→21:18)
[2018-12-09] MEDS ORDERED: Potassium Chloride 20 MEQ in Premix Bag 1 BAG IVPB SCH (09:00)
[2018-12-09] MEDS: Famotidine/PF 20 mg/2ml Vial SLOW IVP SCH ×2 (09:02→21:18)
--- NOTE | 2018-12-09 09:59 | PRG ---
DATE OF SERVICE: 12/09/2018 SUBJECTIVE: The patient is resting comfortably. Decreased oral intake is noted. OBJECTIVE: VITAL SIGNS: Stable. She is afebrile. Abdomen: Soft, nontender, and nondistended. PERTINENT LABORATORY DATA: White count 5, hemoglobin 10, and platelet 283. Potassium this morning is 3.2. The patient was admitted yesterday due to critically low potassium of 2.9. Magnesium low at 1.3. Urine culture, December 01, negative. History of E. coli UTI, November 28, currently on Rocephin. IMPRESSION AND PLAN: Ms. Arriaga is an 83-year-old female, whom I had seen last week due to Escherichia coli urinary tract infection, 10 mm ureteropelvic junction stone, status post stent. Urine culture negative. The patient admitted due to persistent hypokalemia. Her potassium remains low despite replacement. Please replace potassium with another K rider , likely need oral supplementation as outpt. Replace magnesium. Appreciate hospitalist assistance. N.p.o. after midnight. Continue antibiotics. Plan ureteroscopy, laser lithotripsy, and stent exchange tomorrow. Job ID: [id number] [facility]
--- NOTE | 2018-12-09 10:45 | PDOC.PN ---
- Subjective Encounter Start Date: 12/09/18 Encounter Start Time: 08:20 -: old records requested/rev Patient seen and examined. No new complaints. No overnight events - Objective Resuscitation Status - Order Detail: 12/08/18 14:53 Resuscitation Status Routine Resuscitation Status: DNAR: NO Resuscitation Discussed with: OOH and Inpt DNR on file. Pt has dementia.no family at bedside MAR Reviewed: Yes Vital Signs & Weight: Vital Signs (12 hours) Temp Pulse Resp BP Pulse Ox 12/09/18 08:54 95 12/09/18 07:14 97.9 F 56 L 16 149/71 H 95 12/09/18 04:15 98.4 F 57 L 16 129/73 94 L 12/09/18 00:00 97.5 F L 58 L 16 118/63 94 L Weight Weight 126 lb 0.013 oz I&O: 12/08/18 12/09/18 12/10/18 06:59 06:59 06:59 Intake Total 775 Balance 775 Result Diagrams: 12/09/18 06:11 12/09/18 06:11 Additional Labs: Accuchecks 12/09/18 12/08/18 12/08/18 05:35 20:45 16:38 POC Glucose 92 91 78 Phys Exam - Physical Examination Constitutional: NAD HEENT: PERRLA, moist MMs, sclera anicteric Neck: no JVD, supple Respiratory: no wheezing, no rales, no rhonchi Cardiovascular: RRR, no significant murmur, no rub Gastrointestinal: soft, non-tender, no distention, positive bowel sounds Musculoskeletal: no edema, pulses present Neurological: non-focal, normal sensation Lymphatic: no nodes Psychiatric: normal affect Skin: no rash, normal turgor Dx/Plan (1) Hypokalemia Code(s): E87.6 - HYPOKALEMIA Status: Acute (2) Hypomagnesemia Code(s): E83.42 - HYPOMAGNESEMIA Status: Acute (3) Anxiety and depression Code(s): F41.9 - ANXIETY DISORDER, UNSPECIFIED; F32.9 - MAJOR DEPRESSIVE DISORDER, SINGLE EPISODE, UNSPECIFIED Status: Chronic (4) Dementia Code(s): F03.90 - UNSPECIFIED DEMENTIA WITHOUT BEHAVIORAL DISTURBANCE Status: Chronic (5) Diabetes type 2, controlled Code(s): E11.9 - TYPE 2 DIABETES MELLITUS WITHOUT COMPLICATIONS Status: Chronic (6) Dyslipidemia Code(s): E78.5 - HYPERLIPIDEMIA, UNSPECIFIED Status: Chronic (7) Essential hypertension Code(s): I10 - ESSENTIAL (PRIMARY) HYPERTENSION Status: Chronic (8) GERD (gastroesophageal reflux disease) Code(s): K21.9 - GASTRO-ESOPHAGEAL REFLUX DISEASE WITHOUT ESOPHAGITIS Status: Chronic (9) Nephrolithiasis Status: Chronic (10) Obstructive uropathy Code(s): N13.9 - OBSTRUCTIVE AND REFLUX UROPATHY, UNSPECIFIED Status: Chronic - Plan cont current plan of care * replace magnesium and potassium today * repeat labs tomorrow. * tomorrow urology planned for procedure * medication reviewed as below * symptomatic treatment Review of Systems - Review of Systems ENT: negative: Ear Pain, Ear Discharge, Nose Pain, Nose Discharge, Nose Congestion, Mouth Pain, Mouth Swelling, Throat Pain, Throat Swelling, Other Respiratory: negative: Cough, Dry, Shortness of Breath, Hemoptysis, SOB with Excertion, Pleuritic Pain, Sputum, Wheezing Cardiovascular: negative: chest pain, palpitations, orthopnea, paroxysmal nocturnal dyspnea, edema, light headedness, other Gastrointestinal: negative: Nausea, Vomiting, Abdominal Pain, Diarrhea, Constipation, Melena, Hematochezia, Other Genitourinary: negative: Dysuria, Frequency, Incontinence, Hematuria, Retention , Other Musculoskeletal: negative: Neck Pain, Shoulder Pain, Arm Pain, Back Pain, Hand Pain, Leg Pain, Foot Pain, Other Other: not reliable due to dementia - Medications/Allergies Allergies/Adverse Reactions: Allergies Allergy/AdvReac Type Severity Reaction Status Date / Time amoxicillin trihydrate Allergy Verified 11/29/18 07:22 [From Amoxil] Medications: Current Medications Acetaminophen (Tylenol) 650 mg PO Q4H PRN PRN Reason: Headache/Fever/Mild Pain (1-3) Hydrocodone Bitart/Acetaminophen ([place] 5/325) 1 tab PO Q4H PRN PRN Reason: Moderate Pain (4-6) Alprazolam (Xanax) 0.5 mg PO QID [place] Last Admin: 12/09/18 08:54 Dose: 0.5 mg Benzonatate (Tessalon) 100 mg PO Q6H PRN PRN Reason: Cough Bisacodyl (Dulcolax) 10 mg PO DAILYPRN PRN PRN Reason: Constipation Bisacodyl (Dulcolax) 10 mg [place] DAILYPRN PRN PRN Reason: Constipation Calcium Polycarbophil (Fibercon) 625 mg PO ASDIR PRN PRN Reason: Constipation Clonidine (Catapres) 0.1 mg PO Q4H PRN PRN Reason: SBP > 160____ Dextrose/Water (Dextrose 50%) 25 gm SLOW IVP PRN PRN PRN Reason: Hypoglycemia Enoxaparin Sodium (Lovenox) 40 mg SC 0900 [facility] Last Admin: 12/09/18 08:54 Dose: 40 mg Ergocalciferol (Drisdol) 1.25 mg PO ASDIR [place] Famotidine (Pepcid) 20 mg SLOW IVP Q12HR [facility] Last Admin: 12/09/18 09:02 Dose: Not Given Famotidine (Pepcid) 20 mg PO BID [facility] Last Admin: 12/09/18 08:54 Dose: 20 mg Glucagon (Glucagon) 1 mg IM PRN PRN PRN Reason: Hypoglycemia Hydralazine HCl (Apresoline) 10 mg SLOW IVP Q4H PRN PRN Reason: SBP > 180 and HR < 70 Ceftriaxone Sodium 2 gm/ (Sodium Chloride) 100 mls @ 200 mls/hr IVPB Q24HR [facility] Last Admin: 12/08/18 16:44 Dose: 100 mls Dextrose/Water (D5w) 1,000 mls @ 0 mls/hr IV .Q0M PRN PRN Reason: Hypoglycemia Potassium Chloride 20 meq/ (Device) 100 mls @ 50 mls/hr IVPB 0900 [facility] Stop: 12/09/18 10:59 Last Admin: 12/09/18 08:54 Dose: 100 mls Magnesium Sulfate 4 gm/ Sodium (Chloride) 258 mls @ 86 mls/hr IVPB NOW [facility] Stop: 12/09/18 13:59 Insulin Human Lispro (Humalog) 0 units SC .MODERATE SLIDING SC PRN PRN Reason: Moderate Correctional Scale Insulin Human Lispro (Humalog) 0 units SC .BEDTIME SLIDING SC PRN PRN Reason: Bedtime Correctional Scale Melatonin (Melatonin) 2 mg PO HS PRN PRN Reason: Insomnia Nitroglycerin (Nitrostat) 0.4 mg SL Q5MIN PRN PRN Reason: Chest Pain Ondansetron HCl (Zofran) 4 mg IVP Q6H PRN PRN Reason: Nausea/Vomiting Ondansetron HCl (Zofran Odt) 4 mg PO TID [facility] Last Admin: 12/09/18 08:54 Dose: 4 mg Quetiapine Fumarate (Seroquel) 50 mg PO HS [facility] Last Admin: 12/08/18 20:32 Dose: 50 mg Senna/Docusate Sodium (Senokot S) 2 tab PO BIDPRN PRN PRN Reason: Constipation Sodium Chloride ([place] Nasal [place] 0.65%) 0 ml EA NARE QIDPRN PRN PRN Reason: Nasal Congestion
[2018-12-09] MEDS ORDERED: Magnesium Sulfate 4 GM in Sodium Chloride 0.9% 250 ML 250 ML IVPB SCH (11:00)
[2018-12-09 13:17] LABS: Magnesium 2.1 mg/dL (1.6-2.6); Potassium 4.1 mmol/L (3.5-5.1)
[2018-12-09] MEDS: cefTRIAXone\\ROCEPHIN 2 GM in Sodium Chloride 0.9% 100 ML IVPB SCH (16:28)
[2018-12-10 06:45] LABS: #Basophils 0.1 thou/uL (0.0-0.2); #Eosinphils 0.2 thou/uL (0.0-0.7); #Lymphocytes 1.2 thou/uL (1.20-3.40); #Monocytes 0.6 thou/uL (0.11-0.59); #Neutrophils 4.7 thou/uL (1.40-6.50); %Basophils 1.5 % (0.0-1.0); %Eosinophils 2.8 % (0.0-10.0); %Lymphocytes 18.2 % (21.0-51.0); %Monocytes 8.8 % (0.0-10.0); %Neutrophils 68.7 % (42.0-75.0); Hemoglobin 9.9 g/dL (12.0-16.0); Mean Corpuscular HGB CONC 32.3 g/dL (32.0-36.0); Mean Corpuscular Hemoglobin 30.6 pg (27.0-31.0); Mean Corpuscular Volume 94.7 fL (78.0-98.0); Platelet Count 307 thou/uL (130-400); RBC Distribution Width 13.7 % (11.5-14.5); Red Blood Cell (RBC) Count 3.22 mill/uL (4.20-5.40); White Blood Cell (WBC) Count 6.8 thou/uL (4.8-10.8)
[2018-12-10 07:09] LABS: Phosphorus 2.3 mg/dL (2.3-4.7)
[2018-12-10 07:11] LABS: ALT (SGPT) 63 U/L (8-55); AST (SGOT) 40 U/L (5-34); Albumin 3.2 g/dL (3.4-4.8); Alkaline Phosphatase 98 U/L (40-150); Anion Gap 14 mmol/L (10-20); BUN (Urea Nitrogen) 5 mg/dL (9.8-20.1); Bilirubin, Total 0.3 mg/dL (0.2-1.2); Calc. Creatinine Clearance 55 mL/min (70-130); Calcium 8.5 mg/dL (7.8-10.44); Carbon Dioxide 22 mmol/L (23-31); Chloride 108 mmol/L (98-107); Estimated GFR-MDRD 81; Globulin 2.8 g/dL (2.4-3.5); Glucose 109 mg/dL (83-110); Magnesium 1.8 mg/dL (1.6-2.6); Potassium 3.1 mmol/L (3.5-5.1); Sodium 141 mmol/L (136-145)
[2018-12-10] MEDS ORDERED: Potassium Chloride 20 MEQ in Premix Bag 1 BAG IVPB SCH (07:30)
[2018-12-10] MEDS: Famotidine/PF 20 mg/2ml Vial SLOW IVP SCH ×2 (09:42→20:08)
[2018-12-10 10:44] LABS: Potassium 3.7 mmol/L (3.5-5.1)
[2018-12-10] MEDS ORDERED: Fentanyl 100 MCG/2 ML VIAL ONE (10:53)
[2018-12-10] MEDS ORDERED: Sodium Chloride 0.9% 100 ML ONE (11:10)
[2018-12-10] MEDS ORDERED: cefTRIAXone\\ROCEPHIN 2 GM VIAL ONE (11:10)
[2018-12-10] MEDS ORDERED: Lidocaine 1% PF 5 ML VIAL ONE (11:20)
[2018-12-10] MEDS ORDERED: Glycopyrrolate 0.2 MG/ML 5 ML SYRINGE ONE (11:20)
[2018-12-10] MEDS ORDERED: Ondansetron PF 4 MG/2 ML Vial ONE (11:20)
[2018-12-10] MEDS ORDERED: Rocuronium Bromide 10 MG/ML (10ML VIAL) ONE (11:20)
[2018-12-10] MEDS ORDERED: ePHEDrine 50 MG/ML VIAL ONE (11:20)
[2018-12-10] MEDS ORDERED: PROPOFOL 200 MG/20 ML VIAL ONE (11:20)
[2018-12-10] MEDS ORDERED: Iothalamate Meglumine 60% 50 ML VIAL FS ONE (11:39)
[2018-12-10] MEDS: ALPRAZolam 0.5 MG TAB PO SCH ×4 (12:53→20:14)
[2018-12-10] MEDS: Enoxaparin Sodium 40 MG/0.4 ML SYRINGE SC SCH (12:53)
[2018-12-10] MEDS: Famotidine 20 MG TAB PO SCH ×2 (12:54→20:14)
[2018-12-10] MEDS: Ondansetron ODT 4 MG TAB PO SCH ×3 (12:54→20:08)
[2018-12-10] MEDS: cefTRIAXone\\ROCEPHIN 2 GM in Sodium Chloride 0.9% 100 ML IVPB SCH (12:55)
--- NOTE | 2018-12-10 13:02 | RAD ---
RETROGRADE PYELOGRAM: 12/10/2018 HISTORY: Right ureteral stone. COMPARISON: None FINDINGS: Two images are provided. Both images demonstrate a double-J ureteral stent on the right. The first image demonstrates an oval density adjacent to the proximal aspect of the stent, at the L2 level, suggesting a stone within the proximal right ureter. The second image demonstrates a calcification p rojecting over the distal curl of the stent, which may be vascular or associated with an additional stone. IMPRESSION: Retrograde pyelogram, as detailed above. Transcribed Date/Time: 12/10/2018 1:36 PM
--- NOTE | 2018-12-10 17:52 | PDOC.PN ---
- Subjective Encounter Start Date: 12/10/18 Encounter Start Time: 17:35 Subjective: f/u for R ureteral stone s/p laser lithotripsy and stent on Rocephin -: and IVF's. Feels ok overall but no increased pain. - Objective Resuscitation Status - Order Detail: 12/08/18 14:53 Resuscitation Status Routine Resuscitation Status: DNAR: NO Resuscitation Discussed with: OOH and Inpt DNR on file. Pt has dementia.no family at bedside MAR Reviewed: Yes Vital Signs & Weight: Vital Signs (12 hours) Temp Pulse Resp BP Pulse Ox 12/10/18 08:00 98.5 F 69 20 165/75 H 97 12/10/18 07:55 97 Weight Weight 126 lb 0.013 oz I&O: 12/09/18 12/10/18 12/11/18 06:59 06:59 06:59 Intake Total 775 2210 Balance 775 2210 Result Diagrams: 12/10/18 06:34 12/10/18 10:19 Additional Labs: Accuchecks 12/10/18 12/10/18 12/09/18 15:53 05:25 21:36 POC Glucose 91 104 106 Microbiology 12/01/18 09:00 Urine galan catheter Urine Culture - Final NO GROWTH AT 48 HOURS Laboratory Tests 12/09/18 12/10/18 12/10/18 06:11 06:34 06:34 Hgb 10.0 L Potassium 3.1 L Phosphorus 2.3 Magnesium 1.8 Phys Exam - Physical Examination Constitutional: NAD HEENT: PERRLA, sclera anicteric, oral pharynx no lesions Neck: no nodes, no JVD, supple, full ROM Respiratory: no wheezing, no rales, no rhonchi, clear to auscultation bilateral S1, S2 Cardiovascular: RRR, no significant murmur, no rub, gallop Gastrointestinal: soft, non-tender, no distention, positive bowel sounds Musculoskeletal: no edema, pulses present Neurological: normal sensation, moves all 4 limbs Skin: normal turgor, cap refill <2 seconds Deviation from normal: Galan with yellow urine Dx/Plan (1) Nephrolithiasis Status: Chronic Comment: s/p laser lithotripsy and stent exchange 12/10/18, continue Rocephin IV, IVF's, final pathology pending (2) Obstructive uropathy Code(s): N13.9 - OBSTRUCTIVE AND REFLUX UROPATHY, UNSPECIFIED Status: Chronic Comment: See above (3) Hypokalemia Code(s): E87.6 - HYPOKALEMIA Status: Acute Comment: Resolved with supplementation, serial monitoring (4) Hypomagnesemia Code(s): E83.42 - HYPOMAGNESEMIA Status: Acute Comment: Resolved with supplementation (5) Dementia Code(s): F03.90 - UNSPECIFIED DEMENTIA WITHOUT BEHAVIORAL DISTURBANCE Status: Chronic Comment: Continue Aricept 5mg daily (6) Diabetes type 2, controlled Code(s): E11.9 - TYPE 2 DIABETES MELLITUS WITHOUT COMPLICATIONS Status: Chronic Comment: ISS, resume Metformin 1000mg BID in 24h, serial accuchecks - Plan continue antibiotics, PT/OT, delinquency prevention social worker, DVT proph w/SCDs Stable currently -: Continue Rocephin 2gm IV daily -: Galan for decompression -: Pathology for stone analysis pending -: AM lab: BMP, CBC * .
[2018-12-10] MEDS: Potassium Chloride 20 MEQ TAB PO SCH (17:56)
[2018-12-10] MEDS: cloNIDine 0.1 MG TAB PO PRN (18:01)
--- NOTE | 2018-12-10 18:45 | OP ---
DATE OF PROCEDURE: 12/10/2018 PREOPERATIVE DIAGNOSES: 1. An 83-year-old female with history of 9 to 10 mm proximal right ureteral calculi, status post stent. 2. History of Escherichia coli urinary tract infection, pansensitive. POSTOPERATIVE DIAGNOSES: 1. An 83-year-old female with history of 9 to 10 mm proximal right ureteral calculi, status post stent. 2. History of Escherichia coli urinary tract infection, pansensitive. PROCEDURES PERFORMED: Cystoscopy, right retrograde pyelogram, 6 x 26 double-J ureteral stent exchange with distal tail in situ, ureteroscopy, laser lithotripsy, basket extraction, extraction of stone fragments. ANESTHESIA: General. COMPLICATIONS: None apparent. DISPOSITION: To recovery room in stable condition. SPECIMENS: Stone for chemical analysis. INDICATIONS FOR PROCEDURE AND HISTORY: Ms. Arriaga is an 83-year-old female, whom I had seen back in November. She presented with history of leukocytosis, E coli urinary tract infection, and an obstructing right ureteral stone. She underwent ureteral stent placement with normalization of her leukocytosis and bandemia. Repeat urine culture negative. She presents today for ureteroscopy and laser lithotripsy. Risks and complications of the procedure were reviewed with her son, who is the power of state attorney in detail including, but not limited to: Bleeding; pain; infection; injury to adjacent organs; urosepsis; ureteral, bladder, or kidney injury; possible secondary procedure given large stone burden. All questions were answered to their satisfaction and son desires for me to proceed. DESCRIPTION OF PROCEDURE: After an informed consent was signed, the patient was taken to the operating room and placed in a dorsal lithotomy position with the genital area prepped and draped in the usual surgical sterile fashion. She was provided her Rocephin preoperatively. Genital area was formally prepped and draped. A 21-Belgian cystoscope was utilized for cystoscopy. Upon entering the bladder, the previously placed right ureteral stent was removed to the level of the meatus and a 0.35 Sensor wire passed through the stent. Stent was then subsequently removed and at this time, a 10-Belgian dual-lumen access sheath was passed and we opacified the collecting system with proper placement of the wire. At this time, a second working wire 0.35 Super Stiff was placed in the right upper pole and a 10-Belgian dual-lumen access sheath subsequently removed. A 11/13-Belgian x 28 cm Navigator was able to be passed to the proximal ureter with ease. The stone did get pushed up into the renal pelvis and the upper pole calyx. Using 373 ball-tip laser fiber, we utilized from 10 to 20 joules fragmenting the stone into dustlike stone debris. At the end of the procedure, there was no stone burden amendable to be basketed as there was a dustlike stone. There was amendable to be basket extracted and sent for chemical analysis. Surveillance of the collecting system demonstrated no significant stone burden residual concern. The ureter was surveyed demonstrating no evidence of ureteral mucosal perforation or residual stone nidus. A 6 x 26 double-J ureteral stent was replaced without difficulty. Bladder was completely emptied and all wires were removed. She tolerated the procedure well and transported to the recovery room in stable condition. She will continue to be monitored on Medical Service as she has persistent hypokalemia. Anticipate stent removal in 1 to 2 weeks. Continue antibiotic regimen targeted therapy based on her previous urine culture of E coli. Job ID: [id number]
[2018-12-11 07:52] LABS: #Eosinphils 0.3 thou/uL (0.0-0.7); #Lymphocytes 1.5 thou/uL (1.20-3.40); #Monocytes 0.7 thou/uL (0.11-0.59); #Neutrophils 6.3 thou/uL (1.40-6.50); %Basophils 0.5 % (0.0-1.0); %Eosinophils 3.4 % (0.0-10.0); %Lymphocytes 16.8 % (21.0-51.0); %Monocytes 7.9 % (0.0-10.0); %Neutrophils 71.5 % (42.0-75.0); Hemoglobin 10.9 g/dL (12.0-16.0); Mean Corpuscular HGB CONC 32.3 g/dL (32.0-36.0); Mean Corpuscular Hemoglobin 29.6 pg (27.0-31.0); Mean Corpuscular Volume 91.5 fL (78.0-98.0); Mean Platelet Volume 8.4 fL (7.4-10.4); Platelet Count 264 thou/uL (130-400); RBC Distribution Width 13.9 % (11.5-14.5); Red Blood Cell (RBC) Count 3.68 mill/uL (4.20-5.40); White Blood Cell (WBC) Count 8.9 thou/uL (4.8-10.8)
[2018-12-11 08:17] LABS: BUN (Urea Nitrogen) 5 mg/dL (9.8-20.1); Calc. Creatinine Clearance 58 mL/min (70-130); Calcium 8.4 mg/dL (7.8-10.44); Carbon Dioxide 19 mmol/L (23-31); Chloride 112 mmol/L (98-107); Estimated GFR-MDRD 87; Glucose 102 mg/dL (83-110); Potassium 3.4 mmol/L (3.5-5.1); Sodium 141 mmol/L (136-145)
--- NOTE | 2018-12-11 08:18 | PRG ---
DATE OF SERVICE: 12/11/2018 SUBJECTIVE: The patient is sleeping. OBJECTIVE: VITAL SIGNS: Stable. She is afebrile. I's and O's, 750 of urine output, glo, pink tinged. ABDOMEN: Soft, nontender, nondistended. No rigidity. LABORATORY DATA: A.m. labs are pending. IMPRESSION AND PLAN: Ms. Arriaga is an 83-year-old female with history of diabetes, history of urinary tract infection with obstructing ureteral stone. Repeat urine culture negative postop day #1, status post ureteroscopy, laser lithotripsy, successful treatment of her large renal stone, stent exchange. She had postop urinary retention of 600 mL. Dimas catheter placed by nursing staff without significant issue. Continue Rocephin for now. A.m. labs are pending. I did initiate patient on p.o. potassium as she has chronic hypokalemia, may be due to poor diet and diarrhea. When patient is medically cleared with potassium, magnesium stable per Primary Service. Pending disposition, she will most likely be discharged with indwelling Dimas catheter due to postop urinary retention. She is scheduled for outpatient cysto stent pull, appointment in chart. Please inform Urology when patient is ready for discharge for coordination of care. Job ID: [id number] [facility]
[2018-12-11] MEDS: Potassium Chloride 20 MEQ TAB PO SCH ×2 (08:54→16:49)
[2018-12-11] MEDS: Enoxaparin Sodium 40 MG/0.4 ML SYRINGE SC SCH (08:55)
[2018-12-11] MEDS: ALPRAZolam 0.5 MG TAB PO SCH ×4 (08:55→20:10)
[2018-12-11] MEDS: Famotidine 20 MG TAB PO SCH ×2 (08:55→20:10)
[2018-12-11] MEDS: Famotidine/PF 20 mg/2ml Vial SLOW IVP SCH (08:55)
[2018-12-11] MEDS: Ondansetron ODT 4 MG TAB PO SCH ×4 (08:56→20:10)
[2018-12-11 10:11] LABS: Anion Gap 23 mmol/L (10-20)
--- NOTE | 2018-12-11 12:28 | PDOC.PN ---
- Subjective Encounter Start Date: 12/11/18 Encounter Start Time: 12:25 Subjective: f/u for R ureteral stone/uropathy s/p laser lithotripsy and stent exchange -: on R ureter POD #1. Feels ok overall. Indwelling Galan remains in place. -: Tx with Rocephin. - Objective Resuscitation Status - Order Detail: 12/08/18 14:53 Resuscitation Status Routine Resuscitation Status: DNAR: NO Resuscitation Discussed with: OOH and Inpt DNR on file. Pt has dementia.no family at bedside MAR Reviewed: Yes Vital Signs & Weight: Vital Signs (12 hours) Temp Pulse Resp BP Pulse Ox 12/11/18 09:07 162/71 H 12/11/18 07:40 98.4 F 67 18 184/73 H 97 12/11/18 04:02 98.4 F 61 15 102/61 97 12/11/18 01:18 97.8 F 64 15 107/59 L 95 Weight Weight 126 lb 0.013 oz I&O: 12/10/18 12/11/18 12/12/18 06:59 06:59 06:59 Intake Total 2210 Output Total 750 Balance 2210 -750 Result Diagrams: 12/11/18 07:34 12/11/18 07:34 Additional Labs: Accuchecks 12/11/18 12/10/18 12/10/18 05:48 20:53 15:53 POC Glucose 100 129 H 91 Microbiology 12/01/18 09:00 Urine galan catheter Urine Culture - Final NO GROWTH AT 48 HOURS Laboratory Tests 12/09/18 12/10/18 12/10/18 06:11 06:34 06:34 Hgb 10.0 L Potassium 3.1 L Phosphorus 2.3 Magnesium 1.8 Phys Exam - Physical Examination Constitutional: NAD HEENT: PERRLA, sclera anicteric, oral pharynx no lesions Neck: no nodes, no JVD, supple, full ROM Respiratory: no wheezing, no rales, no rhonchi, clear to auscultation bilateral S1, S2 Cardiovascular: RRR, no significant murmur, no rub, gallop Gastrointestinal: soft, non-tender, no distention, positive bowel sounds Musculoskeletal: no edema, pulses present Neurological: normal sensation, moves all 4 limbs Skin: normal turgor, cap refill <2 seconds Deviation from normal: Galan with clear urine Dx/Plan (1) Nephrolithiasis Status: Chronic Comment: s/p laser lithotripsy and stent exchange 12/10/18, continue Rocephin IV, final pathology pending (2) Obstructive uropathy Code(s): N13.9 - OBSTRUCTIVE AND REFLUX UROPATHY, UNSPECIFIED Status: Chronic Comment: See above, continue Galan catheter with plans for outpt cystoscopy and stent evaluation (3) Hypokalemia Code(s): E87.6 - HYPOKALEMIA Status: Acute Comment: KCL supplementation, serial monitoring (4) Hypomagnesemia Code(s): E83.42 - HYPOMAGNESEMIA Status: Acute Comment: Resolved with supplementation (5) Dementia Code(s): F03.90 - UNSPECIFIED DEMENTIA WITHOUT BEHAVIORAL DISTURBANCE Status: Chronic Comment: Continue Aricept 5mg daily (6) Diabetes type 2, controlled Code(s): E11.9 - TYPE 2 DIABETES MELLITUS WITHOUT COMPLICATIONS Status: Chronic Comment: ISS, resume Metformin 1000mg BID in 24h, serial accuchecks - Plan continue antibiotics, PT/OT, manager social media, out of bed/ambulate, DVT proph w/ SCDs Stable currently -: Continue Galan catheter -: Continue Rocephin another 24h -: PT for mobilization -: AM lab: BMP * Likely back to [facility] in am
[2018-12-11] MEDS: cefTRIAXone\\ROCEPHIN 2 GM in Sodium Chloride 0.9% 100 ML IVPB SCH ×2 (15:11→16:47)
[2018-12-12 06:32] LABS: Anion Gap 13 mmol/L (10-20); BUN (Urea Nitrogen) 7 mg/dL (9.8-20.1); Calc. Creatinine Clearance 56 mL/min (70-130); Calcium 8.7 mg/dL (7.8-10.44); Carbon Dioxide 21 mmol/L (23-31); Chloride 111 mmol/L (98-107); Estimated GFR-MDRD 82; Glucose 78 mg/dL (83-110); Potassium 3.7 mmol/L (3.5-5.1); Sodium 141 mmol/L (136-145)
[2018-12-12] MEDS: Sodium Chloride 0.9% 1,000 ML IV SCH ×2 (06:49→21:40)
--- NOTE | 2018-12-12 08:04 | PRG ---
DATE OF SERVICE: 12/12/2018 SUBJECTIVE: The patient is resting comfortably. OBJECTIVE: VITAL SIGNS: Stable. : Urine output is clear, there is some sediment consistent with recent laser lithotripsy of her large renal stone. ABDOMEN: Soft, nontender, and nondistended. PERTINENT LABORATORY DATA: Her potassium is stable this morning at 3.7. On December 01, 2018, urine culture negative. On November 28, urine culture, Escherichia coli, pansensitive, on Rocephin. IMPRESSION AND PLAN: Ms. Arriaga is an 83-year-old female with history of diabetes, history of Escherichia coli urinary tract infection with obstructing ureteral stone, status post stent. Postoperative day #2, stage ureteroscopy, laser lithotripsy, successful treatment of a large renal stone, stent was exchanged. Due to postoperative urinary retention of 600 mL, indwelling Dimas catheter was placed. It is draining uneventfully. Her potassium is stable, the patient can be discharged back to her intermediate. Due to postoperative urinary retention, and deconditioned status, I do recommend the patient be discharged with indwelling Dimas catheter. Please discharge the patient with course of Omnicef 300 mg one p.o. b.i.d. for 5 days. The patient has an appointment with me on December 25, 2018, at 3:00 p.m. for cysto stent pull, will remove her indwelling Dimas catheter concomitantly. Please provide order to start the patient on Omnicef morning of the appointment on December 25 prophylaxis for cysto stent pull in my office at 3:00 p.m. Job ID: [id number] [facility]
[2018-12-12] MEDS: Potassium Chloride 20 MEQ TAB PO SCH ×2 (08:44→18:17)
[2018-12-12] MEDS: Enoxaparin Sodium 40 MG/0.4 ML SYRINGE SC SCH (08:44)
[2018-12-12] MEDS: Ondansetron ODT 4 MG TAB PO SCH ×3 (08:44→21:39)
[2018-12-12] MEDS: Famotidine 20 MG TAB PO SCH ×2 (08:44→21:39)
[2018-12-12] MEDS: ALPRAZolam 0.5 MG TAB PO SCH ×2 (09:00→13:00)
[2018-12-12] MEDS: cefTRIAXone\\ROCEPHIN 2 GM in Sodium Chloride 0.9% 100 ML IVPB SCH (15:08)
--- NOTE | 2018-12-12 15:32 | PDOC.PN ---
- Subjective Encounter Start Date: 12/12/18 Encounter Start Time: 09:35 Subjective: feels better -: has poor appetite - Objective Resuscitation Status - Order Detail: 12/08/18 14:53 Resuscitation Status Routine Resuscitation Status: DNAR: NO Resuscitation Discussed with: OOH and Inpt DNR on file. Pt has dementia.no family at bedside MAR Reviewed: Yes Vital Signs & Weight: Vital Signs (12 hours) Temp Pulse Resp BP Pulse Ox 12/12/18 11:44 98.5 F 73 16 168/81 H 97 12/12/18 08:05 98.9 F 72 16 151/55 H 97 12/12/18 05:00 97.4 F L 65 18 158/72 H 95 Weight Weight 126 lb 0.013 oz I&O: 12/11/18 12/12/18 12/13/18 06:59 06:59 06:59 Intake Total 460 Output Total 750 1375 Balance -750 -915 Result Diagrams: 12/11/18 07:34 12/12/18 05:20 Additional Labs: Accuchecks 12/12/18 12/12/18 12/11/18 11:50 05:33 20:56 POC Glucose 95 80 90 12/11/18 17:01 POC Glucose 87 Phys Exam - Physical Examination HEENT: PERRLA, sclera anicteric Neck: no JVD, supple Respiratory: no wheezing, no rales Cardiovascular: RRR, no significant murmur Gastrointestinal: soft, non-tender, positive bowel sounds Musculoskeletal: no edema, pulses present Neurological: non-focal, moves all 4 limbs Dx/Plan (1) Nephrolithiasis Status: Chronic Comment: s/p laser lithotripsy and stent exchange 12/10/18 (2) Obstructive uropathy Code(s): N13.9 - OBSTRUCTIVE AND REFLUX UROPATHY, UNSPECIFIED Status: Chronic Comment: Sec to above, continue Dimas catheter with plans for outpt cystoscopy and stent evaluation (3) Hypokalemia Code(s): E87.6 - HYPOKALEMIA Status: Acute Comment: KCL supplementation, serial monitoring (4) Anxiety and depression Code(s): F41.9 - ANXIETY DISORDER, UNSPECIFIED; F32.9 - MAJOR DEPRESSIVE DISORDER, SINGLE EPISODE, UNSPECIFIED Status: Chronic (5) Dementia Code(s): F03.90 - UNSPECIFIED DEMENTIA WITHOUT BEHAVIORAL DISTURBANCE Status: Chronic Qualifiers: Dementia type: unspecified type Dementia behavioral disturbance: without behavioral disturbance Qualified Code(s): F03.90 - Unspecified dementia without behavioral disturbance Comment: Continue Aricept 5mg daily (6) Diabetes type 2, controlled Code(s): E11.9 - TYPE 2 DIABETES MELLITUS WITHOUT COMPLICATIONS Status: Chronic Qualifiers: Diabetes mellitus manager terminal insulin use: without manager terminal use Diabetes mellitus complication status: with unspecified complications Qualified Code(s) : E11.8 - Type 2 diabetes mellitus with unspecified complications (7) Dyslipidemia Code(s): E78.5 - HYPERLIPIDEMIA, UNSPECIFIED Status: Chronic (8) Essential hypertension Code(s): I10 - ESSENTIAL (PRIMARY) HYPERTENSION Status: Chronic (9) GERD (gastroesophageal reflux disease) Code(s): K21.9 - GASTRO-ESOPHAGEAL REFLUX DISEASE WITHOUT ESOPHAGITIS Status: Chronic Qualifiers: Esophagitis presence: without esophagitis Qualified Code(s): K21.9 - Gastro -esophageal reflux disease without esophagitis - Plan poor oral intake, d/w staff and -: likely dc plan in am if she starts to eat better -: on ceftriaxone here, omnicef for dc plan -: decrease xanax to tid, has seroquel at HS -: h/h and renal function stable * . Review of Systems - Medications/Allergies Allergies/Adverse Reactions: Allergies Allergy/AdvReac Type Severity Reaction Status Date / Time amoxicillin trihydrate Allergy Verified 11/29/18 07:22 [From Amoxil] Medications: Current Medications Acetaminophen (Tylenol) 650 mg PO Q4H PRN PRN Reason: Headache/Fever/Mild Pain (1-3) Last Admin: 12/10/18 05:01 Dose: 650 mg Hydrocodone Bitart/Acetaminophen ([place] 5/325) 1 tab PO Q4H PRN PRN Reason: Moderate Pain (4-6) Alprazolam (Xanax) 0.25 mg PO TID [facility] Benzonatate (Tessalon) 100 mg PO Q6H PRN PRN Reason: Cough Bisacodyl (Dulcolax) 10 mg PO DAILYPRN PRN PRN Reason: Constipation Bisacodyl (Dulcolax) 10 mg [place] DAILYPRN PRN PRN Reason: Constipation Calcium Polycarbophil (Fibercon) 625 mg PO ASDIR PRN PRN Reason: Constipation Clonidine (Catapres) 0.1 mg PO Q4H PRN PRN Reason: SBP > 160____ Last Admin: 12/10/18 18:01 Dose: 0.1 mg Dextrose/Water (Dextrose 50%) 25 gm SLOW IVP PRN PRN PRN Reason: Hypoglycemia Enoxaparin Sodium (Lovenox) 40 mg SC 0900 [facility] Last Admin: 12/12/18 08:44 Dose: 40 mg Ergocalciferol (Drisdol) 1.25 mg PO ASDIR [facility] Famotidine (Pepcid) 20 mg PO BID [facility] Last Admin: 12/12/18 08:44 Dose: 20 mg Glucagon (Glucagon) 1 mg IM PRN PRN PRN Reason: Hypoglycemia Hydralazine HCl (Apresoline) 10 mg SLOW IVP Q4H PRN PRN Reason: SBP > 180 and HR < 70 Last Admin: 12/10/18 00:03 Dose: 10 mg Ceftriaxone Sodium 2 gm/ (Sodium Chloride) 100 mls @ 200 mls/hr IVPB Q24HR [facility] Last Admin: 12/12/18 15:08 Dose: 100 mls Dextrose/Water (D5w) 1,000 mls @ 0 mls/hr IV .Q0M PRN PRN Reason: Hypoglycemia Sodium Chloride (Normal Saline 0.9%) 1,000 mls @ 75 mls/hr IV .[id number] [facility] Last Admin: 12/12/18 06:49 Dose: 1,000 mls Insulin Human Lispro (Humalog) 0 units SC .MODERATE SLIDING SC PRN PRN Reason: Moderate Correctional Scale Insulin Human Lispro (Humalog) 0 units SC .BEDTIME SLIDING SC PRN PRN Reason: Bedtime Correctional Scale Melatonin (Melatonin) 2 mg PO HS PRN PRN Reason: Insomnia Nitroglycerin (Nitrostat) 0.4 mg SL Q5MIN PRN PRN Reason: Chest Pain Ondansetron HCl (Zofran) 4 mg IVP Q6H PRN PRN Reason: Nausea/Vomiting Last Admin: 12/10/18 04:12 Dose: 4 mg Ondansetron HCl (Zofran Odt) 4 mg PO TID [facility] Last Admin: 12/12/18 15:11 Dose: 4 mg Potassium Chloride (K-Dur) 20 meq PO BID-[facility] Last Admin: 12/12/18 08:44 Dose: 20 meq Quetiapine Fumarate (Seroquel) 50 mg PO [facility] Last Admin: 12/10/18 20:11 Dose: 50 mg Senna/Docusate Sodium (Senokot S) 2 tab PO BIDPRN PRN PRN Reason: Constipation Sodium Chloride ([place] Nasal [place] 0.65%) 0 ml EA NARE QIDPRN PRN PRN Reason: Nasal Congestion
[2018-12-12] MEDS: cloNIDine 0.1 MG TAB PO PRN ×2 (16:26→21:39)
[2018-12-12] MEDS: ALPRAZolam 0.25 MG TAB PO SCH (21:40)
[2018-12-13] MEDS: Famotidine 20 MG TAB PO SCH ×2 (08:45→21:00)
[2018-12-13] MEDS: cloNIDine 0.1 MG TAB PO PRN ×3 (08:45→21:01)
[2018-12-13] MEDS: ALPRAZolam 0.25 MG TAB PO SCH ×3 (08:45→21:01)
[2018-12-13] MEDS: Enoxaparin Sodium 40 MG/0.4 ML SYRINGE SC SCH (08:45)
[2018-12-13] MEDS: Ondansetron ODT 4 MG TAB PO SCH ×3 (08:45→21:01)
--- NOTE | 2018-12-13 12:52 | PDOC.PN ---
- Subjective Encounter Start Date: 12/13/18 Encounter Start Time: 08:30 Subjective: awake, no sob or pain -: not eating much per staff - Objective Resuscitation Status - Order Detail: 12/08/18 14:53 Resuscitation Status Routine Resuscitation Status: DNAR: NO Resuscitation Discussed with: OOH and Inpt DNR on file. Pt has dementia.no family at bedside MAR Reviewed: Yes Vital Signs & Weight: Vital Signs (12 hours) Temp Pulse Resp BP Pulse Ox 12/13/18 11:05 97.3 F L 50 L 14 148/77 H 98 12/13/18 10:12 146/72 H 12/13/18 07:33 98.3 F 59 L 16 174/66 H 97 12/13/18 04:50 97.9 F 62 16 185/71 H 99 Weight Weight 126 lb 0.013 oz I&O: 12/12/18 12/13/18 12/14/18 06:59 06:59 06:59 Intake Total 460 1520 Output Total 1375 1450 Balance -915 70 Result Diagrams: 12/11/18 07:34 12/12/18 05:20 Additional Labs: Accuchecks 12/13/18 12/13/18 12/12/18 11:08 05:37 21:09 POC Glucose 106 100 100 12/12/18 15:44 POC Glucose 90 Phys Exam - Physical Examination HEENT: PERRLA, moist MMs Neck: no JVD, supple Respiratory: no wheezing, no rales Cardiovascular: RRR, no significant murmur Gastrointestinal: soft, non-tender, positive bowel sounds Musculoskeletal: no edema, pulses present Neurological: non-focal, moves all 4 limbs Dx/Plan (1) Nephrolithiasis Status: Chronic Comment: s/p laser lithotripsy and stent exchange 12/10/18 (2) Obstructive uropathy Code(s): N13.9 - OBSTRUCTIVE AND REFLUX UROPATHY, UNSPECIFIED Status: Chronic Comment: Sec to above, continue Dimas catheter with plans for outpt cystoscopy and stent evaluation (3) Hypokalemia Code(s): E87.6 - HYPOKALEMIA Status: Acute Comment: KCL supplementation, serial monitoring (4) Anxiety and depression Code(s): F41.9 - ANXIETY DISORDER, UNSPECIFIED; F32.9 - MAJOR DEPRESSIVE DISORDER, SINGLE EPISODE, UNSPECIFIED Status: Chronic (5) Dementia Code(s): F03.90 - UNSPECIFIED DEMENTIA WITHOUT BEHAVIORAL DISTURBANCE Status: Chronic Qualifiers: Dementia type: unspecified type Dementia behavioral disturbance: without behavioral disturbance Qualified Code(s): F03.90 - Unspecified dementia without behavioral disturbance Comment: Continue Aricept 5mg daily (6) Diabetes type 2, controlled Code(s): E11.9 - TYPE 2 DIABETES MELLITUS WITHOUT COMPLICATIONS Status: Chronic Qualifiers: Diabetes mellitus mcc insulin use: without laborer marine terminal use Diabetes mellitus complication status: with unspecified complications Qualified Code(s) : E11.8 - Type 2 diabetes mellitus with unspecified complications (7) Dyslipidemia Code(s): E78.5 - HYPERLIPIDEMIA, UNSPECIFIED Status: Chronic (8) Essential hypertension Code(s): I10 - ESSENTIAL (PRIMARY) HYPERTENSION Status: Chronic (9) GERD (gastroesophageal reflux disease) Code(s): K21.9 - GASTRO-ESOPHAGEAL REFLUX DISEASE WITHOUT ESOPHAGITIS Status: Chronic Qualifiers: Esophagitis presence: without esophagitis Qualified Code(s): K21.9 - Gastro -esophageal reflux disease without esophagitis - Plan will try glucerna 1 can tid, if she drinks atleast 2 cans with some meals.. -: ...-she can be dc'd to NH. -: continue seroquel, xanax, ceftriaxone -: hemostable * . Review of Systems - Medications/Allergies Allergies/Adverse Reactions: Allergies Allergy/AdvReac Type Severity Reaction Status Date / Time amoxicillin trihydrate Allergy Verified 11/29/18 07:22 [From Amoxil] Medications: Current Medications Acetaminophen (Tylenol) 650 mg PO Q4H PRN PRN Reason: Headache/Fever/Mild Pain (1-3) Last Admin: 12/10/18 05:01 Dose: 650 mg Hydrocodone Bitart/Acetaminophen ([place] 5/325) 1 tab PO Q4H PRN PRN Reason: Moderate Pain (4-6) Alprazolam (Xanax) 0.25 mg PO TID [facility] Last Admin: 12/13/18 08:45 Dose: 0.25 mg Benzonatate (Tessalon) 100 mg PO Q6H PRN PRN Reason: Cough Bisacodyl (Dulcolax) 10 mg PO DAILYPRN PRN PRN Reason: Constipation Bisacodyl (Dulcolax) 10 mg [place] DAILYPRN PRN PRN Reason: Constipation Calcium Polycarbophil (Fibercon) 625 mg PO ASDIR PRN PRN Reason: Constipation Clonidine (Catapres) 0.1 mg PO Q4H PRN PRN Reason: SBP > 160____ Last Admin: 12/13/18 08:45 Dose: 0.1 mg Dextrose/Water (Dextrose 50%) 25 gm SLOW IVP PRN PRN PRN Reason: Hypoglycemia Enoxaparin Sodium (Lovenox) 40 mg SC 0900 [facility] Last Admin: 12/13/18 08:45 Dose: 40 mg Ergocalciferol (Drisdol) 1.25 mg PO ASDIR [facility] Famotidine (Pepcid) 20 mg PO BID [facility] Last Admin: 12/13/18 08:45 Dose: 20 mg Glucagon (Glucagon) 1 mg IM PRN PRN PRN Reason: Hypoglycemia Hydralazine HCl (Apresoline) 10 mg SLOW IVP Q4H PRN PRN Reason: SBP > 180 and HR < 70 Last Admin: 12/10/18 00:03 Dose: 10 mg Ceftriaxone Sodium 2 gm/ (Sodium Chloride) 100 mls @ 200 mls/hr IVPB Q24HR [facility] Last Admin: 12/12/18 15:08 Dose: 100 mls Dextrose/Water (D5w) 1,000 mls @ 0 mls/hr IV .Q0M PRN PRN Reason: Hypoglycemia Sodium Chloride (Normal Saline 0.9%) 1,000 mls @ 75 mls/hr IV .[id number] [facility] Last Admin: 12/12/18 21:40 Dose: 1,000 mls Insulin Human Lispro (Humalog) 0 units SC .MODERATE SLIDING SC PRN PRN Reason: Moderate Correctional Scale Insulin Human Lispro (Humalog) 0 units SC .BEDTIME SLIDING SC PRN PRN Reason: Bedtime Correctional Scale Melatonin (Melatonin) 2 mg PO HS PRN PRN Reason: Insomnia Nitroglycerin (Nitrostat) 0.4 mg SL Q5MIN PRN PRN Reason: Chest Pain Ondansetron HCl (Zofran) 4 mg IVP Q6H PRN PRN Reason: Nausea/Vomiting Last Admin: 12/10/18 04:12 Dose: 4 mg Ondansetron HCl (Zofran Odt) 4 mg PO TID [facility] Last Admin: 12/13/18 08:45 Dose: 4 mg Potassium Chloride (Klor-Con) 20 meq PO BID-[facility] Last Admin: 12/13/18 08:45 Dose: 20 meq Quetiapine Fumarate (Seroquel) 50 mg PO HS [facility] Last Admin: 12/12/18 21:39 Dose: 50 mg Senna/Docusate Sodium (Senokot S) 2 tab PO BIDPRN PRN PRN Reason: Constipation Sodium Chloride ([place] Nasal [place] 0.65%) 0 ml EA NARE QIDPRN PRN PRN Reason: Nasal Congestion
[2018-12-13] MEDS: cefTRIAXone\\ROCEPHIN 2 GM in Sodium Chloride 0.9% 100 ML IVPB SCH (15:41)
[2018-12-13] MEDS: Sodium Chloride 0.9% 1,000 ML IV SCH ×2 (18:30→21:02)
[2018-12-14] MEDS: Ondansetron ODT 4 MG TAB PO SCH ×3 (08:10→20:32)
[2018-12-14] MEDS: Lisinopril 10 MG TAB PO SCH (08:10)
[2018-12-14] MEDS: Enoxaparin Sodium 40 MG/0.4 ML SYRINGE SC SCH (08:10)
[2018-12-14] MEDS: Amlodipine 10 MG TAB PO SCH (08:10)
[2018-12-14] MEDS: ALPRAZolam 0.25 MG TAB PO SCH (08:10)
[2018-12-14] MEDS: Famotidine 20 MG TAB PO SCH ×2 (08:11→20:32)
[2018-12-14 08:40] LABS: #Basophils 0.1 thou/uL (0.0-0.2); #Eosinphils 0.2 thou/uL (0.0-0.7); #Lymphocytes 1.5 thou/uL (1.20-3.40); #Monocytes 0.4 thou/uL (0.11-0.59); #Neutrophils 3.5 thou/uL (1.40-6.50); %Basophils 1.2 % (0.0-1.0); %Eosinophils 2.8 % (0.0-10.0); %Lymphocytes 26.8 % (21.0-51.0); %Monocytes 7.6 % (0.0-10.0); %Neutrophils 61.7 % (42.0-75.0); Mean Corpuscular HGB CONC 33.1 g/dL (32.0-36.0); Mean Corpuscular Hemoglobin 30.9 pg (27.0-31.0); Mean Corpuscular Volume 93.4 fL (78.0-98.0); Mean Platelet Volume 8.4 fL (7.4-10.4); Platelet Count 309 thou/uL (130-400); RBC Distribution Width 14.1 % (11.5-14.5); Red Blood Cell (RBC) Count 3.56 mill/uL (4.20-5.40); White Blood Cell (WBC) Count 5.7 thou/uL (4.8-10.8)
[2018-12-14 09:02] LABS: ALT (SGPT) 19 U/L (8-55); AST (SGOT) 12 U/L (5-34); Albumin 3.3 g/dL (3.4-4.8); Alkaline Phosphatase 85 U/L (40-150); Anion Gap 12 mmol/L (10-20); BUN (Urea Nitrogen) 6 mg/dL (9.8-20.1); Bilirubin, Total 0.3 mg/dL (0.2-1.2); Calc. Creatinine Clearance 58 mL/min (70-130); Carbon Dioxide 24 mmol/L (23-31); Chloride 109 mmol/L (98-107); Estimated GFR-MDRD 87; Globulin 2.8 g/dL (2.4-3.5); Glucose 107 mg/dL (83-110); Potassium 3.7 mmol/L (3.5-5.1); Protein, Total 6.1 g/dL (6.0-8.3); Sodium 141 mmol/L (136-145)
--- NOTE | 2018-12-14 12:18 | PDOC.PN ---
- Subjective Encounter Start Date: 12/14/18 Encounter Start Time: 09:15 Subjective: awakens easily, not oriented -: not in distress - Objective Resuscitation Status - Order Detail: 12/08/18 14:53 Resuscitation Status Routine Resuscitation Status: DNAR: NO Resuscitation Discussed with: OOH and Inpt DNR on file. Pt has dementia.no family at bedside MAR Reviewed: Yes Vital Signs & Weight: Vital Signs (12 hours) Temp Pulse Resp BP Pulse Ox 12/14/18 11:35 98.9 F 74 16 179/80 H 96 12/14/18 08:00 98.2 F 62 16 195/71 H 95 12/14/18 04:00 98.3 F 55 L 16 178/74 H 96 Weight Weight 126 lb 0.013 oz I&O: 12/13/18 12/14/18 12/15/18 06:59 06:59 06:59 Intake Total 1520 1900 Output Total 1450 1650 Balance 70 250 Result Diagrams: 12/14/18 08:13 12/14/18 08:13 Additional Labs: Accuchecks 12/14/18 12/14/18 12/13/18 11:42 05:40 20:58 POC Glucose 125 H 100 99 12/13/18 16:27 POC Glucose 93 Phys Exam - Physical Examination HEENT: PERRLA, moist MMs Neck: no JVD, supple Respiratory: no wheezing, no rales Cardiovascular: RRR, no significant murmur Gastrointestinal: soft, no distention, positive bowel sounds galan+ Musculoskeletal: no edema, pulses present Neurological: non-focal, moves all 4 limbs Dx/Plan (1) Nephrolithiasis Status: Chronic Comment: s/p laser lithotripsy and stent exchange 12/10/18 (2) Obstructive uropathy Code(s): N13.9 - OBSTRUCTIVE AND REFLUX UROPATHY, UNSPECIFIED Status: Chronic Comment: Sec to above, continue Gal[place] catheter with plans for outpt cystoscopy and stent evaluation (3) Hypokalemia Code(s): E87.6 - HYPOKALEMIA Status: Resolved Comment: KCL supplementation, serial monitoring (4) Anxiety and depression Code(s): F41.9 - ANXIETY DISORDER, UNSPECIFIED; F32.9 - MAJOR DEPRESSIVE DISORDER, SINGLE EPISODE, UNSPECIFIED Status: Chronic (5) Dementia Code(s): F03.90 - UNSPECIFIED DEMENTIA WITHOUT BEHAVIORAL DISTURBANCE Status: Chronic Qualifiers: Dementia type: unspecified type Dementia behavioral disturbance: without behavioral disturbance Qualified Code(s): F03.90 - Unspecified dementia without behavioral disturbance Comment: Continue Aricept 5mg daily (6) Diabetes type 2, controlled Code(s): E11.9 - TYPE 2 DIABETES MELLITUS WITHOUT COMPLICATIONS Status: Chronic Qualifiers: Diabetes mellitus rat exterminator insulin use: without alf use Diabetes mellitus complication status: with unspecified complications Qualified Code(s) : E11.8 - Type 2 diabetes mellitus with unspecified complications (7) Dyslipidemia Code(s): E78.5 - HYPERLIPIDEMIA, UNSPECIFIED Status: Chronic (8) Essential hypertension Code(s): I10 - ESSENTIAL (PRIMARY) HYPERTENSION Status: Chronic (9) GERD (gastroesophageal reflux disease) Code(s): K21.9 - GASTRO-ESOPHAGEAL REFLUX DISEASE WITHOUT ESOPHAGITIS Status: Chronic Qualifiers: Esophagitis presence: without esophagitis Qualified Code(s): K21.9 - Gastro -esophageal reflux disease without esophagitis - Plan is more lethargic today, will make her xanax prn, decrease trazodone to 25m -: couldn't reach son yesterday, will try this evening to give an update -: encourage po intake, glucerna tid -: dc iv fluids -: add norvasc and lisinopril for htn, may dc if BP drops * . Review of Systems - Medications/Allergies Allergies/Adverse Reactions: Allergies Allergy/AdvReac Type Severity Reaction Status Date / Time amoxicillin trihydrate Allergy Verified 11/29/18 07:22 [From Amoxil] Medications: Current Medications Acetaminophen (Tylenol) 650 mg PO Q4H PRN PRN Reason: Headache/Fever/Mild Pain (1-3) Last Admin: 12/10/18 05:01 Dose: 650 mg Hydrocodone Bitart/Acetaminophen ([place] 5/325) 1 tab PO Q4H PRN PRN Reason: Moderate Pain (4-6) Alprazolam (Xanax) 0.25 mg PO TID [facility] Last Admin: 12/14/18 08:10 Dose: 0.25 mg Amlodipine Besylate (Norvasc) 10 mg PO DAILY [facility] Last Admin: 12/14/18 08:10 Dose: 10 mg Benzonatate (Tessalon) 100 mg PO Q6H PRN PRN Reason: Cough Bisacodyl (Dulcolax) 10 mg PO DAILYPRN PRN PRN Reason: Constipation Bisacodyl (Dulcolax) 10 mg [place] DAILYPRN PRN PRN Reason: Constipation Calcium Polycarbophil (Fibercon) 625 mg PO ASDIR PRN PRN Reason: Constipation Clonidine (Catapres) 0.1 mg PO Q4H PRN PRN Reason: SBP > 160____ Last Admin: 12/13/18 21:01 Dose: 0.1 mg Dextrose/Water (Dextrose 50%) 25 gm SLOW IVP PRN PRN PRN Reason: Hypoglycemia Enoxaparin Sodium (Lovenox) 40 mg SC 0900 [facility] Last Admin: 12/14/18 08:10 Dose: 40 mg Ergocalciferol (Drisdol) 1.25 mg PO ASDIR [facility] Famotidine (Pepcid) 20 mg PO BID [facility] Last Admin: 12/14/18 08:11 Dose: 20 mg Glucagon (Glucagon) 1 mg IM PRN PRN PRN Reason: Hypoglycemia Hydralazine HCl (Apresoline) 10 mg SLOW IVP Q4H PRN PRN Reason: SBP > 180 and HR < 70 Last Admin: 12/10/18 00:03 Dose: 10 mg Ceftriaxone Sodium 2 gm/ (Sodium Chloride) 100 mls @ 200 mls/hr IVPB Q24HR [facility] Last Admin: 12/13/18 15:41 Dose: 100 mls Dextrose/Water (D5w) 1,000 mls @ 0 mls/hr IV .Q0M PRN PRN Reason: Hypoglycemia Sodium Chloride (Normal Saline 0.9%) 1,000 mls @ 75 mls/hr IV .[id number] [facility] Last Admin: 12/13/18 21:02 Dose: 1,000 mls Insulin Human Lispro (Humalog) 0 units SC .MODERATE SLIDING SC PRN PRN Reason: Moderate Correctional Scale Insulin Human Lispro (Humalog) 0 units SC .BEDTIME SLIDING SC PRN PRN Reason: Bedtime Correctional Scale Lisinopril (Zestril) 10 mg PO DAILY [facility] Last Admin: 12/14/18 08:10 Dose: 10 mg Melatonin (Melatonin) 2 mg PO HS PRN PRN Reason: Insomnia Nitroglycerin (Nitrostat) 0.4 mg SL Q5MIN PRN PRN Reason: Chest Pain Ondansetron HCl (Zofran) 4 mg IVP Q6H PRN PRN Reason: Nausea/Vomiting Last Admin: 12/10/18 04:12 Dose: 4 mg Ondansetron HCl (Zofran Odt) 4 mg PO TID [facility] Last Admin: 12/14/18 08:10 Dose: 4 mg Potassium Chloride (Klor-Con) 20 meq PO BID-[facility] Last Admin: 12/14/18 08:10 Dose: 20 meq Quetiapine Fumarate (Seroquel) 50 mg PO [facility] Last Admin: 12/13/18 21:01 Dose: 50 mg Senna/Docusate Sodium (Senokot S) 2 tab PO BIDPRN PRN PRN Reason: Constipation Sodium Chloride ([place] Nasal [place] 0.65%) 0 ml EA NARE QIDPRN PRN PRN Reason: Nasal Congestion
[2018-12-14] MEDS ORDERED: ALPRAZolam 0.25 MG TAB PO PRN (12:21)
[2018-12-14] MEDS: cloNIDine 0.1 MG TAB PO PRN (16:13)
[2018-12-14] MEDS: Cefdinir 300 MG CAP PO SCH (20:32)
[2018-12-15 08:23] LABS: Anion Gap 15 mmol/L (10-20); BUN (Urea Nitrogen) 6 mg/dL (9.8-20.1); Calc. Creatinine Clearance 53 mL/min (70-130); Calcium 9.4 mg/dL (7.8-10.44); Carbon Dioxide 22 mmol/L (23-31); Chloride 108 mmol/L (98-107); Estimated GFR-MDRD 78; Glucose 123 mg/dL (83-110); Potassium 3.7 mmol/L (3.5-5.1); Sodium 141 mmol/L (136-145)
[2018-12-15] MEDS ORDERED: Mirtazapine 15 MG TAB PO SCH (09:00)
[2018-12-15] MEDS ORDERED: Mirtazapine 30 MG TAB PO SCH (09:00)
[2018-12-15] MEDS: Ondansetron ODT 4 MG TAB PO SCH ×3 (09:06→20:37)
[2018-12-15] MEDS: Amlodipine 10 MG TAB PO SCH (09:06)
[2018-12-15] MEDS: Donepezil HCl 5 MG TAB PO SCH (09:06)
[2018-12-15] MEDS: Lisinopril 10 MG TAB PO SCH (09:06)
[2018-12-15] MEDS: Famotidine 20 MG TAB PO SCH ×2 (09:07→20:37)
[2018-12-15] MEDS: Cefdinir 300 MG CAP PO SCH ×2 (09:07→20:37)
[2018-12-15] MEDS: Enoxaparin Sodium 40 MG/0.4 ML SYRINGE SC SCH (09:07)
--- NOTE | 2018-12-15 09:15 | PRG ---
DATE OF SERVICE: 12/15/2018 SUBJECTIVE: The patient is resting, easily arousable. OBJECTIVE: VITAL SIGNS: Stable. I's and O's, 950 in and 1450 out. She has negative 500 mL. Oral intake is 400 mL. Vital signs are stable. Urine output 1450, clear yellow. LABORATORY DATA: No new labs. IMPRESSION AND PLAN: Ms. Arriaga is an 83-year-old female with history of Escherichia coli urinary tract infection. Repeat urine culture negative. Status post ureteroscopy, laser lithotripsy of large renal stone, status post stent exchange. She is surgically stable. She was kept in-house over the weekend due to poor oral intake. The patient will be discharged when medically stable. Has an indwelling Dimas catheter due to postoperative urinary retention of 600 mL. as she remains in-house, will discontinue Dimas catheter for a voiding trial. Job ID: [id number] MTDD
[2018-12-15 12:50] VITALS: BMI 21.6
[2018-12-15 16:09] LABS: CA Oxalate Dihydrate 25 % (.); CA Oxalate Monohydrate 65 % (.); CA Phosphate 10 % (.); Color Tan (.); Comment Note: (.); Stone Weight 16.7 mg (.)
--- NOTE | 2018-12-15 16:12 | CT ---
CT head noncontrast HISTORY: Altered mental status. COMPARISON: 11/28/2018. FINDINGS: There is no evidence of acute intracranial hemorrhage or infarct. Diffuse cortical atrophy, scattered lacunar infarcts, and chronic ischemic small vessel disease are similar in appearance to the prior exam. There is no mass effect or shift of midline structures. Calcified lesion in the arter ial structures of the brain base. IMPRESSION: Chronic-type findings are stable. No acute intracranial abnormalities are demonstrated.
--- NOTE | 2018-12-15 16:54 | PDOC.PN ---
- Subjective Encounter Start Date: 12/15/18 Encounter Start Time: 13:00 Subjective: more lethargic this am -: does not communicate -: has been able to finish 2 glucerna cans last 24hrs - Objective Resuscitation Status - Order Detail: 12/08/18 14:53 Resuscitation Status Routine Resuscitation Status: DNAR: NO Resuscitation Discussed with: OOH and Inpt DNR on file. Pt has dementia.no family at bedside MAR Reviewed: Yes Vital Signs & Weight: Vital Signs (12 hours) Temp Pulse Resp BP BP Pulse Ox 12/15/18 15:18 98.7 F 83 18 145/78 H 96 12/15/18 11:20 99.9 F H 86 18 156/83 H 98 12/15/18 09:06 77 157/78 H 12/15/18 07:22 97.4 F L 77 16 157/78 H 96 Weight Admit Weight 126 lb Weight 126 lb 0.013 oz I&O: 12/14/18 12/15/18 12/16/18 06:59 06:59 06:59 Intake Total 1900 1190 Output Total 1650 1975 Balance 250 -785 Result Diagrams: 12/14/18 08:13 12/15/18 07:31 Additional Labs: Accuchecks 12/15/18 12/15/18 12/15/18 15:54 11:24 06:14 POC Glucose 106 124 H 112 H 12/14/18 12/14/18 21:53 16:31 POC Glucose 120 H 169 H Phys Exam - Physical Examination HEENT: PERRLA, moist MMs Neck: no JVD, supple Respiratory: no wheezing, no rales Cardiovascular: RRR, no significant murmur Gastrointestinal: soft, non-tender, positive bowel sounds Musculoskeletal: no edema, pulses present Neurological: non-focal, moves all 4 limbs Dx/Plan (1) Nephrolithiasis Status: Chronic Comment: s/p laser lithotripsy and stent exchange 12/10/18 (2) Obstructive uropathy Code(s): N13.9 - OBSTRUCTIVE AND REFLUX UROPATHY, UNSPECIFIED Status: Chronic Comment: Sec to above, continue Dimas catheter with plans for outpt cystoscopy and stent evaluation (3) Hypokalemia Code(s): E87.6 - HYPOKALEMIA Status: Resolved Comment: KCL supplementation, serial monitoring (4) Anxiety and depression Code(s): F41.9 - ANXIETY DISORDER, UNSPECIFIED; F32.9 - MAJOR DEPRESSIVE DISORDER, SINGLE EPISODE, UNSPECIFIED Status: Chronic (5) Dementia Code(s): F03.90 - UNSPECIFIED DEMENTIA WITHOUT BEHAVIORAL DISTURBANCE Status: Chronic Qualifiers: Dementia type: unspecified type Dementia behavioral disturbance: without behavioral disturbance Qualified Code(s): F03.90 - Unspecified dementia without behavioral disturbance Comment: Continue Aricept 5mg daily (6) Diabetes type 2, controlled Code(s): E11.9 - TYPE 2 DIABETES MELLITUS WITHOUT COMPLICATIONS Status: Chronic Qualifiers: Diabetes mellitus assisted insulin use: without assisted use Diabetes mellitus complication status: with unspecified complications Qualified Code(s) : E11.8 - Type 2 diabetes mellitus with unspecified complications (7) Dyslipidemia Code(s): E78.5 - HYPERLIPIDEMIA, UNSPECIFIED Status: Chronic (8) Essential hypertension Code(s): I10 - ESSENTIAL (PRIMARY) HYPERTENSION Status: Chronic (9) GERD (gastroesophageal reflux disease) Code(s): K21.9 - GASTRO-ESOPHAGEAL REFLUX DISEASE WITHOUT ESOPHAGITIS Status: Chronic Qualifiers: Esophagitis presence: without esophagitis Qualified Code(s): K21.9 - Gastro -esophageal reflux disease without esophagitis (10) Severe muscle deconditioning Code(s): R29.898 - OTH SYMPTOMS AND SIGNS INVOLVING THE MUSCULOSKELETAL SYSTEM Status: Acute (11) FTT (failure to thrive) in adult Status: Acute (12) Moderate malnutrition Code(s): E44.0 - MODERATE PROTEIN-CALORIE MALNUTRITION Status: Acute - Plan has very poor oral intake, and has become more lethargic today -: CT brain, repeat cultures (tmax of 99), tsh in am, cxr -: no focal signs clinically except for cognitive slowing -: dc remeron, continue sertraline and seroquel -: is on omnicef. Electrolytes are stable * . D/w sherrill Novoa and gave a full update. Review of Systems - Medications/Allergies Allergies/Adverse Reactions: Allergies Allergy/AdvReac Type Severity Reaction Status Date / Time amoxicillin trihydrate Allergy Verified 11/29/18 07:22 [From Amoxil] Medications: Current Medications Acetaminophen (Tylenol) 650 mg PO Q4H PRN PRN Reason: Headache/Fever/Mild Pain (1-3) Last Admin: 12/10/18 05:01 Dose: 650 mg Hydrocodone Bitart/Acetaminophen ([place] 5/325) 1 tab PO Q4H PRN PRN Reason: Moderate Pain (4-6) Alprazolam (Xanax) 0.25 mg PO TID PRN PRN Reason: anxiety Amlodipine Besylate (Norvasc) 10 mg PO DAILY [facility] Last Admin: 12/15/18 09:06 Dose: 10 mg Benzonatate (Tessalon) 100 mg PO Q6H PRN PRN Reason: Cough Bisacodyl (Dulcolax) 10 mg PO DAILYPRN PRN PRN Reason: Constipation Bisacodyl (Dulcolax) 10 mg [place] DAILYPRN PRN PRN Reason: Constipation Calcium Polycarbophil (Fibercon) 625 mg PO ASDIR PRN PRN Reason: Constipation Cefdinir (Omnicef) 300 mg PO BID [facility] Last Admin: 12/15/18 09:07 Dose: 300 mg Clonidine (Catapres) 0.1 mg PO Q4H PRN PRN Reason: SBP > 160____ Last Admin: 12/14/18 16:13 Dose: 0.1 mg Dextrose/Water (Dextrose 50%) 25 gm SLOW IVP PRN PRN PRN Reason: Hypoglycemia Donepezil HCl (Aricept) 5 mg PO DAILY [facility] Last Admin: 12/15/18 09:06 Dose: 5 mg Enoxaparin Sodium (Lovenox) 40 mg SC 0900 [facility] Last Admin: 12/15/18 09:07 Dose: 40 mg Ergocalciferol (Drisdol) 1.25 mg PO ASDIR [facility] Famotidine (Pepcid) 20 mg PO BID [facility] Last Admin: 12/15/18 09:07 Dose: 20 mg Glucagon (Glucagon) 1 mg IM PRN PRN PRN Reason: Hypoglycemia Hydralazine HCl (Apresoline) 10 mg SLOW IVP Q4H PRN PRN Reason: SBP > 180 and HR < 70 Last Admin: 12/10/18 00:03 Dose: 10 mg Dextrose/Water (D5w) 1,000 mls @ 0 mls/hr IV .Q0M PRN PRN Reason: Hypoglycemia Insulin Human Lispro (Humalog) 0 units SC .MODERATE SLIDING SC PRN PRN Reason: Moderate Correctional Scale Insulin Human Lispro (Humalog) 0 units SC .BEDTIME SLIDING SC PRN PRN Reason: Bedtime Correctional Scale Lisinopril (Zestril) 10 mg PO DAILY [facility] Last Admin: 12/15/18 09:06 Dose: 10 mg Melatonin (Melatonin) 2 mg PO HS PRN PRN Reason: Insomnia Nitroglycerin (Nitrostat) 0.4 mg SL Q5MIN PRN PRN Reason: Chest Pain Ondansetron HCl (Zofran) 4 mg IVP Q6H PRN PRN Reason: Nausea/Vomiting Last Admin: 12/10/18 04:12 Dose: 4 mg Ondansetron HCl (Zofran Odt) 4 mg PO TID [facility] Last Admin: 12/15/18 09:06 Dose: 4 mg Potassium Chloride (Klor-Con) 20 meq PO BID-[facility] Last Admin: 12/15/18 09:06 Dose: 20 meq Quetiapine Fumarate (Seroquel) 25 mg PO [facility] Last Admin: 12/14/18 20:32 Dose: 25 mg Senna/Docusate Sodium (Senokot S) 2 tab PO BIDPRN PRN PRN Reason: Constipation Sertraline HCl (Zoloft) 50 mg PO [facility] Sodium Chloride ([place] Nasal [place] 0.65%) 0 ml EA NARE QIDPRN PRN PRN Reason: Nasal Congestion
--- NOTE | 2018-12-15 18:13 | RAD ---
XR Chest 1 View Portable History: [Chest pain] Comparison: Radiograph November 28, 2018 Findings: Lungs are clear. No pneumothorax or effusion. Incompletely evaluated right double-J uretera l stent is present. No acute osseous abnormality. Impression: No evidence for pneumonia.
[2018-12-16] MEDS: Sodium Chloride 0.9% 1,000 ML IV SCH ×2 (06:35→21:42)
[2018-12-16] MEDS: Enoxaparin Sodium 40 MG/0.4 ML SYRINGE SC SCH (08:29)
[2018-12-16] MEDS: Lisinopril 10 MG TAB PO SCH (08:30)
[2018-12-16] MEDS: Amlodipine 10 MG TAB PO SCH (08:30)
[2018-12-16] MEDS: Cefdinir 300 MG CAP PO SCH ×2 (08:30→21:41)
[2018-12-16] MEDS: Famotidine 20 MG TAB PO SCH ×2 (08:30→21:42)
[2018-12-16] MEDS: Ondansetron ODT 4 MG TAB PO SCH ×3 (08:30→21:41)
[2018-12-16] MEDS: Donepezil HCl 5 MG TAB PO SCH (08:32)
--- NOTE | 2018-12-16 13:45 | PRG ---
DATE OF SERVICE: 12/16/2018 SUBJECTIVE: The patient is sleeping. Per nursing staff, decreased oral intake. OBJECTIVE: VITAL SIGNS: Stable. She is afebrile. ABDOMEN: Soft, nontender, and nondistended. PERTINENT LABS: No new labs today. Potassium yesterday was stable. IMPRESSION AND PLAN: Ms. Arriaga is an 83-year-old female, who presented with Escherichia coli urinary tract infection, status post ureteroscopy, laser lithotripsy of large right stone, status post stent exchange. She is surgically stable. Postop urinary retention, 600 mL, has resolved as her PVR has been minimal. The patient may be discharged back to her halfway facility when medically cleared. Please continue antibiotic regimen as previously advised with Lamberto. She has followup appointment with me next week for stent pull in my office. Job ID: [id number] MTDD
--- NOTE | 2018-12-16 15:22 | PDOC.PN ---
- Subjective Encounter Start Date: 12/16/18 Encounter Start Time: 09:45 Subjective: awake, says hi but doesn't talk beyond that -: no sob - Objective Resuscitation Status - Order Detail: 12/08/18 14:53 Resuscitation Status Routine Resuscitation Status: DNAR: NO Resuscitation Discussed with: OOH and Inpt DNR on file. Pt has dementia.no family at bedside MAR Reviewed: Yes Vital Signs & Weight: Vital Signs (12 hours) Temp Pulse Resp BP Pulse Ox 12/16/18 12:18 97.9 F 69 16 155/78 H 94 L 12/16/18 07:47 98.7 F 72 16 166/81 H 96 12/16/18 04:35 98.8 F 97 16 135/73 97 Weight Admit Weight 126 lb Weight 126 lb 0.013 oz I&O: 12/15/18 12/16/18 12/17/18 06:59 06:59 06:59 Intake Total 1190 240 Output Total 1975 70 Balance -785 170 Result Diagrams: 12/14/18 08:13 12/15/18 07:31 Additional Labs: Accuchecks 12/16/18 12/16/18 12/15/18 12:16 05:29 20:09 POC Glucose 125 H 152 H 118 H 12/15/18 15:54 POC Glucose 106 Phys Exam - Physical Examination HEENT: PERRLA, moist MMs Neck: no JVD, supple Respiratory: no wheezing, no rales Cardiovascular: RRR, no significant murmur Gastrointestinal: soft, non-tender, positive bowel sounds Musculoskeletal: no edema, pulses present Neurological: non-focal, moves all 4 limbs Psychiatric: normal affect, A&O x 3 Dx/Plan (1) Nephrolithiasis Status: Chronic Comment: s/p laser lithotripsy and stent exchange 12/10/18 (2) Obstructive uropathy Code(s): N13.9 - OBSTRUCTIVE AND REFLUX UROPATHY, UNSPECIFIED Status: Chronic Comment: Sec to above (3) Hypokalemia Code(s): E87.6 - HYPOKALEMIA Status: Resolved (4) Anxiety and depression Code(s): F41.9 - ANXIETY DISORDER, UNSPECIFIED; F32.9 - MAJOR DEPRESSIVE DISORDER, SINGLE EPISODE, UNSPECIFIED Status: Chronic (5) Dementia Code(s): F03.90 - UNSPECIFIED DEMENTIA WITHOUT BEHAVIORAL DISTURBANCE Status: Chronic Qualifiers: Dementia type: unspecified type Dementia behavioral disturbance: without behavioral disturbance Qualified Code(s): F03.90 - Unspecified dementia without behavioral disturbance Comment: Continue Aricept 5mg daily (6) Diabetes type 2, controlled Code(s): E11.9 - TYPE 2 DIABETES MELLITUS WITHOUT COMPLICATIONS Status: Chronic Qualifiers: Diabetes mellitus exterminator insulin use: without exterminator use Diabetes mellitus complication status: with unspecified complications Qualified Code(s) : E11.8 - Type 2 diabetes mellitus with unspecified complications (7) Dyslipidemia Code(s): E78.5 - HYPERLIPIDEMIA, UNSPECIFIED Status: Chronic (8) Essential hypertension Code(s): I10 - ESSENTIAL (PRIMARY) HYPERTENSION Status: Chronic (9) GERD (gastroesophageal reflux disease) Code(s): K21.9 - GASTRO-ESOPHAGEAL REFLUX DISEASE WITHOUT ESOPHAGITIS Status: Chronic Qualifiers: Esophagitis presence: without esophagitis Qualified Code(s): K21.9 - Gastro -esophageal reflux disease without esophagitis (10) Severe muscle deconditioning Code(s): R29.898 - OTH SYMPTOMS AND SIGNS INVOLVING THE MUSCULOSKELETAL SYSTEM Status: Acute (11) FTT (failure to thrive) in adult Status: Acute (12) Moderate malnutrition Code(s): E44.0 - MODERATE PROTEIN-CALORIE MALNUTRITION Status: Acute (13) Depression Code(s): F32.9 - MAJOR DEPRESSIVE DISORDER, SINGLE EPISODE, UNSPECIFIED Status : Acute Qualifiers: Depression Type: major depressive disorder Active/Remission status: currently active Major depression episode severity: severe Psychotic features: without psychotic features - Plan hemostable -: has very poor appetite, and is severely deconditioned -: d/w son Mr.Nigliazzo Lucio and palliative care -: dc pt to snf with palliative care -: will d/w and give updates * .
[2018-12-17 05:09] LABS: #Basophils 0.1 thou/uL (0.0-0.2); #Eosinphils 0.2 thou/uL (0.0-0.7); #Lymphocytes 1.9 thou/uL (1.20-3.40); #Monocytes 0.9 thou/uL (0.11-0.59); #Neutrophils 4.9 thou/uL (1.40-6.50); %Basophils 0.7 % (0.0-1.0); %Eosinophils 2.6 % (0.0-10.0); %Lymphocytes 23.7 % (21.0-51.0); %Monocytes 11.4 % (0.0-10.0); %Neutrophils 61.6 % (42.0-75.0); Hemoglobin 11.1 g/dL (12.0-16.0); Mean Corpuscular HGB CONC 31.1 g/dL (32.0-36.0); Mean Corpuscular Hemoglobin 29.6 pg (27.0-31.0); Mean Corpuscular Volume 95.2 fL (78.0-98.0); Mean Platelet Volume 8.2 fL (7.4-10.4); Platelet Count 400 thou/uL (130-400); RBC Distribution Width 14.4 % (11.5-14.5); Red Blood Cell (RBC) Count 3.75 mill/uL (4.20-5.40); White Blood Cell (WBC) Count 7.9 thou/uL (4.8-10.8)
[2018-12-17 05:30] LABS: Anion Gap 14 mmol/L (10-20); BUN (Urea Nitrogen) 10 mg/dL (9.8-20.1); Calc. Creatinine Clearance 54 mL/min (70-130); Calcium 8.8 mg/dL (7.8-10.44); Carbon Dioxide 22 mmol/L (23-31); Chloride 110 mmol/L (98-107); Estimated GFR-MDRD 80; Glucose 111 mg/dL (83-110); Potassium 3.5 mmol/L (3.5-5.1); Sodium 142 mmol/L (136-145)
--- NOTE | 2018-12-17 07:37 | PRG ---
DATE OF SERVICE: 12/17/2018 SUBJECTIVE: The patient is alert, baseline dementia, minimally verbal. OBJECTIVE: VITAL SIGNS: Stable. ABDOMEN: Soft, nontender, nondistended. PERTINENT LABORATORY DATA: White count 7, hemoglobin 11, platelet 400. Potassium stable at 3.5, creatinine 0.7. IMPRESSION AND PLAN: An 83-year-old female with history of Escherichia coli urinary tract infection with right ureteral stone status post stent, ureteroscopy, laser lithotripsy with endoscopic clearance. Had postop urinary retention, 600 mL, resolved on recheck PVR monitoring. Await placement. The patient will most likely be [facility] to [facility], hospice palliative care team has been consulted. The patient has followup with me next for stent pull under local. She should continue her Omnicef until followup appointment for stent pull. Job ID: [id number]
[2018-12-17] MEDS: Ondansetron ODT 4 MG TAB PO SCH ×2 (08:57→16:31)
[2018-12-17] MEDS: Lisinopril 10 MG TAB PO SCH (08:57)
[2018-12-17] MEDS: Enoxaparin Sodium 40 MG/0.4 ML SYRINGE SC SCH (08:57)
[2018-12-17] MEDS: Cefdinir 300 MG CAP PO SCH (08:57)
[2018-12-17] MEDS: Donepezil HCl 5 MG TAB PO SCH (08:57)
[2018-12-17] MEDS: Amlodipine 10 MG TAB PO SCH (08:57)
[2018-12-17] MEDS: Famotidine 20 MG TAB PO SCH (08:57)
[2018-12-17] MEDS: Sodium Chloride 0.9% 1,000 ML IV SCH (10:28)
[2018-12-17 16:19] VITALS: BP 174/74; TEMP 98.7
--- NOTE | 2018-12-17 16:28 | PDOC.PN ---
- Subjective Encounter Start Date: 12/17/18 Encounter Start Time: 16:26 Subjective: feels OK. doesnot talk much ,smiles -: denies any pain or discomfort -: no Overnight events - Objective Resuscitation Status - Order Detail: 12/08/18 14:53 Resuscitation Status Routine Resuscitation Status: DNAR: NO Resuscitation Discussed with: OOH and Inpt DNR on file. Pt has dementia.no family at bedside MAR Reviewed: Yes Vital Signs & Weight: Vital Signs (12 hours) Temp Pulse Resp BP Pulse Ox 12/17/18 15:46 98.7 F 97 18 174/74 H 99 12/17/18 11:22 98.6 F 77 14 151/81 H 93 L 12/17/18 08:28 97.8 F 73 16 139/77 96 Weight Admit Weight 126 lb Weight 126 lb 0.013 oz I&O: 12/16/18 12/17/18 12/18/18 06:59 06:59 06:59 Intake Total 240 1140 1080 Output Total 70 110 350 Balance 170 1030 730 Result Diagrams: 12/17/18 04:56 12/17/18 04:56 Additional Labs: Accuchecks 12/17/18 12/17/18 12/17/18 15:45 11:27 05:48 POC Glucose 119 H 129 H 110 12/16/18 20:48 POC Glucose 101 Microbiology 12/16/18 02:35 Urine voided Urine Culture - Preliminary NO GROWTH AT 12 HOURS 12/15/18 15:59 Venous blood - Right Hand Blood Culture - Preliminary Specimen has been received and culture in progress. No Growth to date. 12/15/18 15:58 Venous blood - Left Hand Blood Culture - Preliminary Specimen has been received and culture in progress. No Growth to date. Phys Exam - Physical Examination Constitutional: NAD HEENT: PERRLA, moist MMs, sclera anicteric, oral pharynx no lesions Neck: no nodes, no JVD, supple, full ROM Respiratory: no wheezing, no rales, no rhonchi, clear to auscultation bilateral Cardiovascular: RRR, no significant murmur, no rub Gastrointestinal: soft, non-tender, no distention, positive bowel sounds Musculoskeletal: no edema, pulses present Neurological: non-focal, normal sensation, moves all 4 limbs Psychiatric: normal affect Skin: no rash, normal turgor, cap refill <2 seconds Dx/Plan (1) Hypokalemia Code(s): E87.6 - HYPOKALEMIA Status: Resolved (2) Hypomagnesemia Code(s): E83.42 - HYPOMAGNESEMIA Status: Acute Comment: improved with supplementation (3) Nephrolithiasis Status: Chronic Comment: s/p laser lithotripsy and stent exchange 12/10/18 (4) Obstructive uropathy Code(s): N13.9 - OBSTRUCTIVE AND REFLUX UROPATHY, UNSPECIFIED Status: Chronic Comment: Sec to above (5) Dyslipidemia Code(s): E78.5 - HYPERLIPIDEMIA, UNSPECIFIED Status: Chronic (6) Essential hypertension Code(s): I10 - ESSENTIAL (PRIMARY) HYPERTENSION Status: Chronic Comment: controlled. monitor. cont amlodipine and Lisinopril (7) GERD (gastroesophageal reflux disease) Code(s): K21.9 - GASTRO-ESOPHAGEAL REFLUX DISEASE WITHOUT ESOPHAGITIS Status: Chronic Qualifiers: Esophagitis presence: without esophagitis Qualified Code(s): K21.9 - Gastro -esophageal reflux disease without esophagitis (8) Diabetes type 2, controlled Code(s): E11.9 - TYPE 2 DIABETES MELLITUS WITHOUT COMPLICATIONS Status: Chronic Qualifiers: Diabetes mellitus [facility] insulin use: without [facility] use Diabetes mellitus complication status: with unspecified complications Qualified Code(s) : E11.8 - Type 2 diabetes mellitus with unspecified complications - Plan continue antibiotics, PT/OT, out of bed/ambulate, DVT proph w/SCDs Dc when approved for SNIF -: HD stable -: cont omnicef for UTI for now -: labs in am * . Review of Systems - Review of Systems Constitutional: negative: fever, chills, sweats, weakness, malaise, other Cardiovascular: negative: chest pain, palpitations, orthopnea, paroxysmal nocturnal dyspnea, edema, light headedness, other Gastrointestinal: negative: Nausea, Vomiting, Abdominal Pain, Diarrhea, Constipation, Melena, Hematochezia, Other Other: limited due to dementia - Medications/Allergies Allergies/Adverse Reactions: Allergies Allergy/AdvReac Type Severity Reaction Status Date / Time amoxicillin trihydrate Allergy Verified 11/29/18 07:22 [From Amoxil] Medications: Current Medications Acetaminophen (Tylenol) 650 mg PO Q4H PRN PRN Reason: Headache/Fever/Mild Pain (1-3) Last Admin: 12/10/18 05:01 Dose: 650 mg Hydrocodone Bitart/Acetaminophen ([facility] 5/325) 1 tab PO Q4H PRN PRN Reason: Moderate Pain (4-6) Alprazolam (Xanax) 0.25 mg PO TID PRN PRN Reason: anxiety Amlodipine Besylate (Norvasc) 10 mg PO DAILY [facility] Last Admin: 12/17/18 08:57 Dose: 10 mg Benzonatate (Tessalon) 100 mg PO Q6H PRN PRN Reason: Cough Bisacodyl (Dulcolax) 10 mg PO DAILYPRN PRN PRN Reason: Constipation Bisacodyl (Dulcolax) 10 mg [place] DAILYPRN PRN PRN Reason: Constipation Calcium Polycarbophil (Fibercon) 625 mg PO ASDIR PRN PRN Reason: Constipation Cefdinir (Omnicef) 300 mg PO BID [facility] Last Admin: 12/17/18 08:57 Dose: 300 mg Clonidine (Catapres) 0.1 mg PO Q4H PRN PRN Reason: SBP > 160____ Last Admin: 12/14/18 16:13 Dose: 0.1 mg Dextrose/Water (Dextrose 50%) 25 gm SLOW IVP PRN PRN PRN Reason: Hypoglycemia Donepezil HCl (Aricept) 5 mg PO DAILY [facility] Last Admin: 12/17/18 08:57 Dose: 5 mg Enoxaparin Sodium (Lovenox) 40 mg SC 0900 [facility] Last Admin: 12/17/18 08:57 Dose: 40 mg Ergocalciferol (Drisdol) 1.25 mg PO ASDIR [facility] Famotidine (Pepcid) 20 mg PO BID [facility] Last Admin: 12/17/18 08:57 Dose: 20 mg Glucagon (Glucagon) 1 mg IM PRN PRN PRN Reason: Hypoglycemia Hydralazine HCl (Apresoline) 10 mg SLOW IVP Q4H PRN PRN Reason: SBP > 180 and HR < 70 Last Admin: 12/10/18 00:03 Dose: 10 mg Dextrose/Water (D5w) 1,000 mls @ 0 mls/hr IV .Q0M PRN PRN Reason: Hypoglycemia Sodium Chloride (Normal Saline 0.9%) 1,000 mls @ 70 mls/hr IV .[id number] [facility] Last Admin: 12/17/18 10:28 Dose: 1,000 mls Insulin Human Lispro (Humalog) 0 units SC .MODERATE SLIDING SC PRN PRN Reason: Moderate Correctional Scale Insulin Human Lispro (Humalog) 0 units SC .BEDTIME SLIDING SC PRN PRN Reason: Bedtime Correctional Scale Lisinopril (Zestril) 10 mg PO DAILY [facility] Last Admin: 12/17/18 08:57 Dose: 10 mg Melatonin (Melatonin) 2 mg PO HS PRN PRN Reason: Insomnia Methylphenidate HCl (Ritalin) 10 mg PO BID [facility] Last Admin: 12/17/18 10:24 Dose: 10 mg Nitroglycerin (Nitrostat) 0.4 mg SL Q5MIN PRN PRN Reason: Chest Pain Ondansetron HCl (Zofran) 4 mg IVP Q6H PRN PRN Reason: Nausea/Vomiting Last Admin: 12/10/18 04:12 Dose: 4 mg Ondansetron HCl (Zofran Odt) 4 mg PO TID [facility] Last Admin: 12/17/18 08:57 Dose: 4 mg Potassium Chloride (Klor-Con) 20 meq PO BID-[facility] Last Admin: 12/17/18 08:56 Dose: 20 meq Quetiapine Fumarate (Seroquel) 25 mg PO [facility] Last Admin: 12/16/18 21:41 Dose: 25 mg Senna/Docusate Sodium (Senokot S) 2 tab PO BIDPRN PRN PRN Reason: Constipation Sertraline HCl (Zoloft) 50 mg PO [facility] Last Admin: 12/16/18 21:41 Dose: 50 mg Sodium Chloride ([place] Nasal [place] 0.65%) 0 ml EA NARE QIDPRN PRN PRN Reason: Nasal Congestion
--- NOTE | 2018-12-19 09:48 | DIS ---
DATE OF ADMISSION: 12/08/2018 DATE OF DISCHARGE: 12/17/2018 DISCHARGE DISPOSITION: [facility]. ACCEPTING PHYSICIAN: Dr. Landry. DISCHARGE DIAGNOSES: 1. Hypokalemia, resolved. 2. Hypomagnesemia, resolved. 3. Nephrolithiasis, status post laser lithotripsy and stent exchange on 12/10/2018. 4. Obstructive uropathy secondary to nephrolithiasis, resolved. 5. Dyslipidemia. 6. Hypertension. 7. Gastroesophageal reflux disease. 8. Diabetes mellitus type 2. DISCHARGE MEDICATIONS: 1. MiraLAX p.r.n. 2. Milk of magnesia p.r.n. 3. Latanoprost eye drops at bedtime. 4. Laxative. 5. Colace. 6. Tylenol p.r.n. 7. Sertraline 50 mg daily. 8. Protonix 40 mg daily. 9. Glucophage 1000 mg p.o. b.i.d. 10. Aricept 5 mg daily. 11. Vitamin D2. 12. Xanax 0.5 q.i.d. p.r.n. 13. Zofran p.r.n. 14. Melatonin two tablets at bedtime. 15. Seroquel 25 mg at bedtime. 16. Methylphenidate 10 mg p.o. b.i.d. 17. Lisinopril 10 mg daily. 18. Omnicef 300 mg p.o. b.i.d. 19. Amlodipine 10 mg daily. IN-HOUSE CONSULTATION: Urology, Dr. Murphy. PROCEDURES DONE IN THE HOSPITAL: 1. Abdominal x-ray on 12/08/2018, which shows right double pigtail ureteral stent in place with unremarkable bowel gas pattern. 2. Cystoscopy with right retrograde pyelogram and ureteral stent exchange with distal tail in situ along with the ureteroscopy; laser lithotripsy; basket extraction; extraction of stone fragments on 12/10/2018, by Dr. Murphy. 3. Chest x-ray on 12/15/2018, which did not show any evidence of pneumonia. 4. CT scan of the brain on 12/15/2018, which also did not show any acute intracranial abnormality. PRIMARY CARE PHYSICIAN: Mika Gomez MD. HISTORY OF PRESENTING ILLNESS: Ms. Arriaga is an 83-year-old female with severe dementia who was recently admitted to our facility last month for UTI and underwent right ureteral stent placement with right-sided obstructive uropathy, was admitted as a direct admit from Day Stay by urologist, Dr. Murphy. She was at the Day Stay to undergo an elective reschedule surgery for laser lithotripsy, but her potassium level was found to be low at 2.9, so surgery was canceled and she was admitted to Medicine team for same. Please see admission history and physical dictated by myself on 12/08/2018, for full details. HOSPITAL COURSE: The patient's hospital course was otherwise rather unremarkable. Her potassium was supplemented. Magnesium was checked which was also found to be low. Once the lab values normalized, she underwent the scheduled surgery by Dr. Murphy on 12/10/2018, as above. Postoperative course was unremarkable except for some metabolic encephalopathy, which resolved. The patient's family requested placement to a skilled rehab facility, which was arranged and this was done on 12/17/2018, and she was discharged in a stable condition. She was seen and examined prior to discharge. Please see hospitalist progress note from the date of discharge for full detail including [id number] interaction. Job ID: [id number]
== END 2018-12-17 18:07 | DRG 660 ==
LOC: SDC 07:46 → SURG A 14:05
PROVIDERS: ADMIT Internal Medicine; ATTEND Internal Medicine
PROC: 0TC68ZZ Extirpation of Matter from Right Ureter, Via Natural or Artificial Opening Endoscopic (ICD-10-PCS; principal; 2018-12-10)
PROC: 0T768DZ Dilation of Right Ureter with Intraluminal Device, Via Natural or Artificial Opening Endoscopic (ICD-10-PCS; 2018-12-10)
PROC: BT1D1ZZ Fluoroscopy of Right Kidney, Ureter and Bladder using Low Osmolar Contrast (ICD-10-PCS; 2018-12-10)
PROC: 0TP98DZ Removal of Intraluminal Device from Ureter, Via Natural or Artificial Opening Endoscopic (ICD-10-PCS; 2018-12-10)
DX: N13.2 Hydronephrosis with renal and ureteral calculous obstruction (principal); E44.0 Moderate protein-calorie malnutrition; K51.90 Ulcerative colitis, unspecified, without complications; N13.9 Obstructive and reflux uropathy, unspecified; E87.6 Hypokalemia; Z66 Do not resuscitate; I10 Essential (primary) hypertension; M54.9 Dorsalgia, unspecified; G89.29 Other chronic pain; E78.5 Hyperlipidemia, unspecified; K21.9 Gastro-esophageal reflux disease without esophagitis; G30.9 Alzheimer's disease, unspecified; F02.80 Dementia in other diseases classified elsewhere, unspecified severity, without behavioral disturbance, psychotic disturbance, mood disturbance, and anxiety; R33.9 Retention of urine, unspecified; E11.9 Type 2 diabetes mellitus without complications; E83.42 Hypomagnesemia; F41.9 Anxiety disorder, unspecified; Z90.49 Acquired absence of other specified parts of digestive tract; Z90.710 Acquired absence of both cervix and uterus; Z88.0 Allergy status to penicillin; Z88.1 Allergy status to other antibiotic agents; Z79.899 Other long term (current) drug therapy
CPT/HCPCS: 36415; 36416; 70450; 71045; 74018; 74420; 80048; 80053; 82365; 83735; 84100; 85025; 87040; 87086; 87186; 88300; 90471; 90670; C1758; C1769; G0009; J0360; J0696; J1650; J1956; J2001; J2270; J2405; J2704; J3010; J3475; J3480; J3490; J7050; Q0162; Q9961; S0028